=== PATIENT | female | born 1965 | race Caucasian/White ===

== ENCOUNTER 2021-07-27 11:15 | Outpatient (CLI) | payer BC, SELFPAY ==
--- NOTE | ~2021-07-27 | XR_ITS ---
EXAMINATION: XR foot LT 2V INDICATION: Left foot pain TECHNIQUE: Two views of the left foot are obtained. COMPARISON: None available FINDINGS: There is advanced osteoarthritis at the first metatarsophalangeal joint. No fracture is sandhya ntified. The soft tissues are unremarkable. There is fusion of the distal interphalangeal joints of t he second through fifth toes. IMPRESSION: 1. 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 Reviewed, dictated and finalized at location B.
== END 2021-07-27 11:16 | disposition home or self-care (01) ==
PROVIDERS: PCP Family Medicine; Visit Provider Nurse Practitioner Family
DX: M19.072 Primary osteoarthritis, left ankle and foot (principal)
CPT/HCPCS: 73620

== ENCOUNTER 2023-01-17 15:55 | Emergency (ER) | payer BC, SELFPAY ==
--- NOTE | ~2023-01-17 | XR_ITS ---
. XR knee RT min 4V 01/17/2023 16:42 Indication: Right knee pain after work injury Procedure: 4 views right knee Comparison: No prior studies for comparison. Findings: There is anatomic alignment. No fracture or traumatic subluxation. No joint effusion. No adebayo int space narrowing. No soft tissue abnormality. Impression: 1: No significant bone or joint abnormality. Reviewed, dictated and finalized at location L. Impression: 1: No significant bone or joint abnormality.
[2023-01-17 16:12] VITALS: BP 132/78; PULSE 68; RESP 18; TEMP 36; O2SAT 99
--- NOTE | 2023-01-17 16:46 | ED.LOWEXIN ---
HPI - Extremity Injury (Lower) General Chief Complaint: Extremity Injury, Lower Stated Complaint: Rt Knee Pain Time Seen by Provider: 01/17/23 16:47 Source: patient, RN notes reviewed and old records reviewed Mode of arrival: ambulatory Limitations: no limitations History of Present Illness HPI Narrative: 57 year female presents to [facility] with complaints of pain to the medial aspect of her left knee since the end of December. 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 She states she stood up after working and had sharp pain for about 2 hours straight iced it and rested her knee and it did seem to improve some. She states that she has been working on her knee since and it aches and when she is up on her knee it feel like there is pain underneath the knee cap. She has iced her knee, used Biofreeze and also taken Ibuprofen, used shania wrap. Patient has no swelling or discoloration to her right knee, she has full ROM of knee. Patient also reports complaints of sinus congestion,sinus pain for 1 month, reports has used OTC sinus medications and has also taken Sudafed with no improvement, states no fever. MD complaint: other (right knee pain) Onset (ago): day(s) (15) Severity scale (1-10): 7 Treatments prior to arrival: cold therapy, NSAIDS and other (shania wrap. ) Related Data Allergies Allergy/AdvReac Type Severity Reaction Status Date / Time NKDA Allergy Mild Unknown Uncoded 01/17/23 16:29 Review of Systems Review of Systems: CONSTITUTIONAL: Denies fever, chills, or sweats. EYES: Denies visual changes, redness, or discharge. ENT: Reports rhinorrhea, congestion sinus pain for 4 weeks,no sore throat, or otalgia. CARDIOVASCULAR: Denies chest pain, palpitations, or edema. RESPIRATORY: Denies cough or dyspnea. GASTROINTESTINAL: Denies abdominal pain, nausea, vomiting, or diarrhea. GENITOURINARY: Denies dysuria or hematuria. SKIN: Denies rash or itching. MUSCULOSKELETAL: Denies back pain, joint pain, or myalgia. NEUROLOGIC: Denies headache, numbness, or weakness. PSYCHIATRIC: Denies anxiety or depression. All systems reviewed & are unremarkable except as noted in HPI and below PMFSH Past Medical History Medical History Allergies Headache Hyperlipidemia Migraine Family History Family History Father Family history of lung cancer Mother Family history of coronary artery disease Grandparent Family history of coronary artery disease Social History Social History Social History: Single lives alone. 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 There is no relevant family history pertinent to the presenting complaint Exam Narrative: GENERAL: Well-appearing, well-nourished, and in no acute distress. HEAD: Normocephalic, atraumatic. EYES: PERRLA and EOMI. ENT: Nares red and swollen clear rhinorrhea no epistaxis, facial pressure and headache frontal. Mucous membranes moist. TM's normal, throat pink with post nasal discharge. NECK: Supple. no lymphadenopathy CHEST: Clear to auscultation. No respiratory distress.SKYE 99% on room air HEART: Regular rate and rhythm. No murmur heard. Normal peripheral pulses. ABDOMEN: Soft, nontender, nondistended, normal active bowel sounds. EXTREMITIES: Normal range of motion. No edema noted, pain to medi
== END 2023-01-17 17:15 | disposition home or self-care (01) ==
PROVIDERS: Emergency Provider Registered Nurse; PCP Nurse Practitioner Family
DX: M25.561 Pain in right knee (principal); J01.40 Acute pansinusitis, unspecified; E78.5 Hyperlipidemia, unspecified
CPT/HCPCS: 73564; 99213; G0463

== ENCOUNTER 2023-06-01 13:36 | Emergency (ER) | payer BC, SELFPAY ==
--- NOTE | 2023-06-01 13:43 | ED.URI ---
HPI - URI/Sore Throat General Chief Complaint: Upper Respiratory Infection Stated Complaint: Sinus Infection Time Seen by Provider: 06/01/23 13:43 Source: patient Mode of arrival: ambulatory Limitations: no limitations History of Present Illness HPI Narrative: Angi is a 4-year-old female patient presenting to the clinic today with complaints of possible sinus infection x3 days. She reports she is having sinus pressure and congestion with drainage going on the back of her throat. No fever or chills. States that when she blows her nose she does have some green nasal discharge. Has only taken ibuprofen for her symptoms. MD elicited complaint: cough, nasal congestion and sinus pain Related Data Home Medications Medication Instructions Recorded Confirmed No Home Medications 06/01/23 06/01/23 Allergies Allergy/AdvReac Type Severity Reaction Status Date / Time NKDA Allergy Mild Unknown Uncoded 06/01/23 13:44 Review of Systems Review of Systems: Pertinent positives per HPI. Patient denies any fever, chills, rash, headache, visual changes, dizziness, shortness of breath, chest pain, palpitations, nausea, vomiting, diarrhea, constipation, abdominal pain, or any urinary issues. PMFSH Past Medical History Medical History Allergies Headache Hyperlipidemia Migraine Family History Family History Father Family history of lung cancer Mother Family history of coronary artery disease Grandparent Family history of coronary artery disease Social History Social History Social History: Single lives alone. 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 There is no relevant family history pertinent to the patient complaint. Exam Narrative: General: Well-developed, well nourished, in no apparent distress Head: Normocephalic, atraumatic Eyes: Pupils equally round and reactive to light bilaterally, EOM intact, sclera and conjunctive clear, no discharge, lids normal Ears: TMs intact and clear, ear canals clear, no drainage, grossly hearing normal. Nose: Nares patent, clear nasal discharge, no inflammation, no sinus tenderness. Mouth: Oral pharynx without lesions or masses, good dentition, MMM. Postnasal drip Neck: Supple, trachea midline, no enlargement of anterior or posterior cervical nodes, no thyroid masses or goiter palpable. Cardio: Regular rate and rhythm, s1 and s2 normal, no murmur appreciated. Resp: Clear to auscultation bilaterally, no rhonchi, rales, wheezing or rubs Course Course Emergency Course: Portions of this record may have been created with voice recognition software. Level of Care: Express Care Visit Vital Signs Vital signs: Vital signs reviewed MDM - URI/Sore Throat MDM Narrative Medical decision making narrative: At the time of visit patient is resting comfortably on the exam table. Patient appears to be nontoxic. Labs: COVID testing was performed and was positive in the clinic today Plan: COVID test was positive in the clinic today. Work note was given. Supportive measures were discussed with the patient and they voiced understanding discharge instructions and agrees to treatment plan. Return precautions reviewed Differential Diagnosis Differential diagnosis: Likely upper respiratory infection, otitis media, sinus
[2023-06-01 13:48] VITALS: BP 128/72; PULSE 84; RESP 18; TEMP 36.6; O2SAT 97
== END 2023-06-01 14:24 | disposition home or self-care (01) ==
PROVIDERS: Emergency Provider Nurse Practitioner Family; PCP Nurse Practitioner Family
DX: U07.1 COVID-19 (principal); E78.5 Hyperlipidemia, unspecified
CPT/HCPCS: 87426; 87804; 99213; G0463

== ENCOUNTER 2023-07-05 15:18 | Emergency (ER) | payer BC, SELFPAY ==
[2023-07-05 15:33] VITALS: BP 130/66; PULSE 69; RESP 18; TEMP 36.4; O2SAT 99
--- NOTE | 2023-07-05 15:53 | ED.DENTAL ---
HPI - Dental/Oral General Chief complaint: Dental/Oral Stated complaint: mouth infection Time Seen by Provider: 07/05/23 15:53 Source: patient Mode of arrival: ambulatory Limitations: no limitations History of Present Illness HPI Narrative: 58-year-old female presents with complaint of soreness in throat with drainage. States that the drainage is smelling and taste bad and swelling it into her stomach and is going into her system .afebrile. All systems reviewed and negative except as noted above. Related Data Allergies Allergy/AdvReac Type Severity Reaction Status Date / Time NKDA Allergy Mild Unknown Uncoded 07/05/23 15:50 Review of Systems Review of Systems: CONSTITUTIONAL: Denies fever, chills, or sweats. EYES: Denies visual changes, redness, or discharge. ENT: Denies rhinorrhea, congestion . Reports sore throat. Denies otalgia. CARDIOVASCULAR: Denies chest pain, palpitations, or edema. RESPIRATORY: Denies cough or dyspnea. GASTROINTESTINAL: Denies abdominal pain, nausea, vomiting, or diarrhea. GENITOURINARY: Denies dysuria or hematuria. SKIN: Denies rash or itching. MUSCULOSKELETAL: Denies back pain, joint pain, or myalgia. NEUROLOGIC: Denies headache, numbness, or weakness. PSYCHIATRIC: Denies anxiety or depression. All other systems reviewed are negative, except as documented in HPI. [facility] Past Medical History Medical History Allergies Headache Hyperlipidemia Migraine Family History Family History Father Family history of lung cancer Mother Family history of coronary artery disease Grandparent Family history of coronary artery disease Social History Social History Social History: Single lives alone. 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 There is no relevant family history pertinent to the presenting complaint. Exam Narrative: GENERAL: This is a well-nourished, well-developed patient, in no apparent distress. HEAD: normocephalic, atraumatic. EYES: PERRL. Sclera clear/white. Vision is grossly intact. EARS: External ears normal NOSE: External nose normal THROAT: Mucous membranes moist, mild erythema and swelling with postnasal drainage NECK: Neck supple, non-tender without lymphadenopathy, masses or thyromegaly. CARDIOVASCULAR: Regular rate and rhythm without murmurs, gallops, or rubs. RESPIRATORY: Clear to auscultation. Breath sounds equal bilaterally. No wheezes, rales, or rhonchi. SKIN: warm, Dry, intact with no suspicious lesions or rash, good texture and turgor. NEURO: awake, alert, and oriented to person, place and time. There were no obvious focal neurologic abnormalities. EXTREMITIES: No joint tenderness, effusion, or edema noted. Course Course Level of Care: Express Care Visit Vital Signs Vital signs: Vital Signs Temperature 36.4 C L 07/05/23 15:33 Pulse Rate 69 07/05/23 15:33 Respiratory Rate 18 07/05/23 15:33 Blood Pressure 130/66 07/05/23 15:33 Pulse Oximetry 99 07/05/23 15:33 Oxygen Delivery Room Air 07/05/23 15:33 Temperature 36.4 C L 07/05/23 15:33 Pulse Rate 69 07/05/23 15:33 Respiratory Rate 18 07/05/23 15:33 Blood Pressure 130/66 07/05/23 15:33 Pulse Oximetry 99 07/05/23 15:33 Oxygen Delivery Room Air 07/05/23 15:33 reviewed MDM - Dental/Oral MDM Narrative Medical
== END 2023-07-05 16:27 | disposition home or self-care (01) ==
PROVIDERS: Emergency Provider Nurse Practitioner Family; PCP Nurse Practitioner Family
DX: J02.0 Streptococcal pharyngitis (principal); E78.5 Hyperlipidemia, unspecified
CPT/HCPCS: 87426; 87880; 99213; G0463

== ENCOUNTER 2023-08-13 12:08 | Emergency (ER) | payer BC, SELFPAY ==
--- NOTE | 2023-08-13 12:11 | ED.URI ---
HPI - URI/Sore Throat General Chief Complaint: Upper Respiratory Infection Stated Complaint: Congestion and R Ear Discomfort Time Seen by Provider: 08/13/23 12:26 Source: patient, RN notes reviewed and old records reviewed Mode of arrival: ambulatory Limitations: no limitations History of Present Illness HPI Narrative: 58-year-old female presents to the [facility] with congestion since Saturday, 4 days ago. Reports fluid in right ear. Has had drainage from eyes nose. Started today. Taken a decongestant and NyQuil. Denies fevers Related Data Home Medications Medication Instructions Recorded Confirmed No Home Medications 08/13/23 08/13/23 Allergies Allergy/AdvReac Type Severity Reaction Status Date / Time No Known Allergies Allergy Verified 08/13/23 12:12 Review of Systems Review of Systems: All systems reviewed & are unremarkable except as noted in HPI and below Constitutional: Constitutional: Reports no additional constitutional complaints Eyes: Eyes: Reports no additional eye complaints ENT: Reports as per HPI, Reports otalgia and Reports nasal congestion Cardiovascular: Cardiovascular: Reports no additional cardiovascular complaints, Denies chest pain and Denies dyspnea Respiratory: Respiratory: Reports no additional respiratory complaints, Denies chest congestion, Denies cough and Denies dyspnea Gastrointestinal: Gastrointestinal: Reports no additional gastrointestinal complaints, Denies abdominal pain, Denies nausea and Denies vomiting Musculoskeletal: Musculoskeletal: Reports no additional musculoskeletal complaints Integumentary/Breasts: Skin/Breast: Reports system reviewed and no additional complaints, except as docu Neurologic: Reports system reviewed and no additional complaints, except as documented Psychiatric: Psychiatric: Reports no additional psychiatric complaints Allergic/Immunologic: Allergic/Immunologic: Reports no additional allergic/immunologic complaints [facility] Past Medical History Medical History Allergies Headache Hyperlipidemia Migraine Family History Family History Father Family history of lung cancer Mother Family history of coronary artery disease Grandparent Family history of coronary artery disease Social History Social History Social History: Single lives alone. 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 There is no relevant family history pertinent to the patient complaint. Exam Const: General: cooperative, healthy appearing, comfortable, no acute distress, well developed, alert and well nourished Nutritional Appearance: well nourished Orientation/consciousness: patient oriented x3 Limitations: no limitations HENMT: Head: normal to inspection Ears: hearing grossly normal bilaterally, external ears normal, EAC's normal, mastoids normal, no periauricular adenopathy and TM abnormal wth effusion serous on the right Face/Nose/Sinus: Normal external nose present, Normal nares present, Normal nasal mucous membranes and turbinates present, Nasal discharge present clear bilateral, normal facial exam, face symmetric and No sinus tenderness Face and sinus: normal facial exam and face symmetric Mouth: Yes Normal oral and palatal mucosa present, Yes lip normal and Yes moist mucous membranes Throat: posterior oropharynx joey
[2023-08-13 12:24] VITALS: BP 139/80; PULSE 70; RESP 18; TEMP 36.2; O2SAT 99
== END 2023-08-13 12:46 | disposition home or self-care (01) ==
PROVIDERS: Emergency Provider Nurse Practitioner
DX: R09.82 Postnasal drip (principal); J06.9 Acute upper respiratory infection, unspecified; H65.03 Acute serous otitis media, bilateral; E78.5 Hyperlipidemia, unspecified
CPT/HCPCS: 99211; G0463

== ENCOUNTER 2024-05-04 03:48 | Emergency (ER) | payer BC, SELFPAY ==
[2024-05-04 03:53] VITALS: BP 166/92; PULSE 74; RESP 20; TEMP 37.4; O2SAT 97
[2024-05-04] MEDS: cefTRIAXone 1 GM VIAL IM (05:21)
[2024-05-04] MEDS: dexAMETHasone SOD PHOS INJ 10 MG/ML 1 ML VIAL IM (05:21)
[2024-05-04] MEDS: HYDROmorphone HCL INJ (*CRX) 1 MG/ML SYR IM (05:21)
[2024-05-04] MEDS: LIDOCAINE 1% LOCAL INJ 10 ML VIAL (05:21)
--- NOTE | 2024-05-04 05:46 | ED.GENADULT ---
HPI - General Adult General Chief complaint: Ear Stated complaint: ear pain, dizziness Time Seen by Provider: 05/04/24 05:06 History of Present Illness HPI narrative: Patient is 58-year-old female who presents emergency department with chief complaint of ear pain and decreased hearing patient reports that she has had a recent ear infection was treated with amoxicillin for 3 days and prednisone for 3 days patient reports that she continues to have worsening pain and reports that now she cannot hear out of her ears. The patient reports that the pain is exquisite reports that she has not seen your nose and throat Related Data Allergies Allergy/AdvReac Type Severity Reaction Status Date / Time No Known Allergies Allergy Verified 05/04/24 03:57 Review of Systems Review of Systems: A 10 system review of systems was completed on the patient and is negative except for what is stated in the HPI. Nursing and ancillary documentation was reviewed. PMFSH Past Medical History Medical History Hyperlipidemia Migraine Headache Allergies Family History Family History Father Family history of lung cancer Mother Family history of coronary artery disease Grandparent Family history of coronary artery disease Social History Social History Social History: Single lives alone. 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 HEAD: Normocephalic, atraumatic. EYES: PERRLA and EOMI. ENT: There is clear rhinorrhea from both nostril. The left tympanic membrane is bulging right tympanic membrane is erythematous NECK: Supple. CHEST: Clear to auscultation. No respiratory distress. HEART: Regular rate and rhythm. No murmur heard. Normal peripheral pulses. ABDOMEN: Soft, nontender, nondistended, normal active bowel sounds. EXTREMITIES: Normal range of motion. No edema. SKIN: Warm, dry, no rash. NEURO: No focal deficits. Alert and oriented x3. PSYCH: Normal mood and affect. Course Vital Signs Vital signs: Vital Signs Temperature 37.4 C 05/04/24 03:53 Pulse Rate 74 05/04/24 03:53 Respiratory Rate 20 05/04/24 03:53 Blood Pressure 166/92 H 05/04/24 03:53 Pulse Oximetry 97 05/04/24 03:53 Oxygen Delivery Room Air 05/04/24 03:53 Temperature 37.4 C 05/04/24 03:53 Pulse Rate 74 05/04/24 03:53 Respiratory Rate 20 05/04/24 03:53 Blood Pressure 166/92 H 05/04/24 03:53 Pulse Oximetry 97 05/04/24 03:53 Oxygen Delivery Room Air 05/04/24 03:53 Medical Decision Making MDM Narrative Medical decision making narrative: Differential diagnosis includes otitis media The patient has a bulging left tympanic membrane. The patient's pain was controlled in the emergency department the patient was started on cefdinir and prednisone. Vital Signs Vital Signs: Vital Signs Temperature 37.4 C 05/04/24 03:53 Pulse Rate 74 05/04/24 03:53 Respiratory Rate 20 05/04/24 03:53 Blood Pressure 166/92 H 05/04/24 03:53 Pulse Oximetry 97 05/04/24 03:53 Oxygen Delivery Room Air 05/04/24 03:53 Temperature 37.4 C 05/04/24 03:53 Pulse Rate 74 05/04/24 03:53 Respiratory Rate 20 05/04/24 03:53 Blood Pressure 166/92 H 05/04/24 03:53 Pulse Oximetry 97 05/04/24 03:53 Oxygen Delivery Room Air 05/04/24 03:53 Discharge Plan Discharge Clinical Impression: Acute otitis media Patient Disposition: Home, Self-Care Condition: Stable Instructions: Antibiotic Form, Ear Infection (ED), Earache (ED) Patient Language: Japanese Prescriptions: New cefdinir 300 mg capsule 300 mg PO Q12H 10 Days Qty: 20 0RF prednisone 20 mg tablet 40 mg PO DAILY 5 Days Qty: 10 0RF hydrocodone-acetaminophen 5-325 mg tablet 1 tablet PO Q6H PRN (Reason: pain) 3 Days Qty: 12 0RF Follow-up/Referrals: Dima Mcnally MD [Physician] - Jean Cerrato MD [Physician] - UNKNOWN,DOCTOR [Primary Care Provider] - Time of Disposition: 05:48
--- OUTSIDE RECORDS SUMMARY | 2024-05-11 04:02 | XMS_ITS | Continuity of Care Document ---
Author Organization [facility] Address [address] [place] [address] Phone Care Team Providers Care Offender Employment Specialist Name Role Phone Silvio Mendez MD Unavailable Unavailable Allergies, Adverse Reactions, Alerts Substance Reaction Status Criticality No Known Allergies Active No Inform ation Medications Medication Instructions Dosage Effective Dates (start - stop) Status Comments meloxicam 7.5 mg tablet take 1 tablet by oral route every 12 hrs pc prn - No Longer Active Procedures Procedure Date Office/outpatient visit,est, mod 2023 Supplemental Report Global/Postop followup visit Supplemental Report Global/Postop followup visit Supplemental Report Global/Postop followup visit Supplemental Report Global/Postop followup visit Supplemental Report Synovectomy Limited Scope Arthroscopic Chondroplasty Office/outpatient visit,est, mod 2023 Supplemental Report Office/outpatient visit,est, mod 2022 Supplemental Report Asp/inject major joint or bursa w/o US g uidance Kenalog 10mg/mL Office/outpatient visit,est, mod 2022 Supplemental Report Office consultation, moderate MDM Knee Hinged [facility] Advance Directives Directive Yes / No Effective Date File Name No Information Encounters Encounter Description Practice Location Reason(s) For Visit Diagnoses Date Provider Providers Copied on Encounter Office/outpa tient visit,est, mod [facility], [address] [address], [place], [place], [id number], [place] tel:[phone] [facility] Right knee (chief complaint) Encounter for other orthopedic aftercare 4 Andrea Anguiano. [address] [facility], [place], [place], [id number] , [place]. tel: [phone] [facility], [address], [id number], [place] tel:[phone] [facility] Having to fill out my own stat (chief complaint) Encounter for other orthopedic aftercare 4 Andrea Anguiano. [address] [facility], [place], [place], [id number] , [place]. tel: [phone] [facility], [address], [id number], [place] tel:[phone] [facility] right knee (chief complaint) Encounter for other orthopedic aftercare 4 Andrea Anguiano. [address] [facility], [place], [address] , [place]. tel: [phone] [facility], [address], [id number], [place] tel:[phone] [facility] Having to check in (chief complaint) Encounter for other orthopedic aftercare 4 Anrdea Anguiano. [address] [facility], [address], [id number] , [place]. tel: [phone] [facility], [address], [id number], [place] tel:[phone] [facility] right knee (chief complaint) Encounter for other orthopedic aftercare 4 Andrea Anguiano. [address] [facility] [address], [place], [place], [address] , [place]. tel: [phone] [facility], [address] [address], [place], [place], [address], [place] tel:[phone] [facility] No Information 4 Andrea Anguiano. [address] [facility] [address], [place], [place], [id number] , [place]. tel: [phone] Office/outpa tient visit,est, [facility], [address], [id number], [place] tel:[phone] [facility] right knee (chief complaint) Chondromalacia of right knee 4 Andrea Anguiano. [address], [id number] , [place]. tel: [phone] Office/outpa tient visit,est, [facility], [address], [id number], [place] tel:[phone] [facility] Right leg (chief complaint) Contusion of right knee, sequelaChondromal acia of right knee 3 Andrea Anguiano. [address] [facility], [address], [id number] , [place]. tel: [phone] Office/outpa tient visit,est, [facility], [address], [id number], [place] tel:[phone] [facility] Follow up (chief complaint) Contusion of right knee, sequela 3 Andrea Anguiano. [address] [facility], [address] [address], [place], [place], [id number] , [place]. tel: [phone] [facility], [address], [id number], [place] tel:[phone] [facility] right knee (chief complaint) Contusion of right knee, sequelaChondromal acia of right knee 3 Andrea Anguiano. [address] [facility], [place], [place], [id number] , [place]. [phone] Office consultation , moderate MDM [facility], [address] [facility] [facility] [address], [place], [id number], tel:[phone] [facility] right knee (chief complaint) Nondisp fx of medial condyle of right femur, init 3 Andrea Anguiano. [address], [place], [place], [address] , [place]. tel:[phone] Referring Provider: Silvio Prieto, [facility] [address] [facility], [place], [address] . tel:[phone] Family History Family Member Type Diagnosis Age At Onset Mother Problem (finding) Stroke Mother Problem (finding) Heart Disease Mother Problem (finding) Cancer, unknown Father Problem (finding) Cancer, unknown Immunizations Vaccine Date Status Comments influenza, injectable, quadr ivalent, (3 years or older) administered Source: Other Provid er Payers Payer name Insurance type Covered republican ID Rafita mensah(ashu Quintanilla [facility] [place] [id number] Social History Type Description Quantity Date Captured Comments Alcohol Use Details No Caffeine Use Details Unknown Tobacco Use Status Current non-smoker Smoking Status Never smoker Non-Smoking Tobacco Use Details : No Details Available : No Details Available Sex Female Vital Signs Date / Time: Height Weight BMI Pulse Rate Blood Pressure Temperature Respiratory Rate Body Surface Area Head Circumference Head Circ. Percentile Wt./Paul. Percentile BMI percentile Pulse Ox Inhaled Ox 9:29 AM 65.00 in 63.503 kg (140.00 lbs) 23.3 0 kg/m eter (2) Chief Complaint And Reason For Visit From encounter dated 09/23/2023 09:30'. Right knee (chief complaint). Description: Angi returns to the office for right knee follow up. Reason For Referral Reason For Referral No Information History Of Present Illness Encounter Date Complaint History Of Prese nt Illness Right knee Angi returns to the office for right knee follow up. Having to fill out my own stat right knee Angi returns to the office for right knee follow up. Having to check in Angi returns to the office for right knee follow up. right knee Angi returns to the office for right knee follow up. right knee Angi returns to the office for right knee follow up. Right leg Angi returns to the office for right knee follow up. Follow up Angi returns to the office for right knee follow up. right knee Angi returns to the office for right knee follow up. right knee Angi presents t o the office for right knee complaints. Functional Status Date Functional Assessmen t No Information Instructions Date Instruction Additional Infor mation No Information Assessments Type Assessment Date assessment Encounter for other orthopedic a ftercare Patient Care Teams Name Effective Dates (start - stop) Status Members No Information
--- OUTSIDE RECORDS SUMMARY | 2024-05-11 04:20 | XMS_ITS | Continuity of Care Document ---
Author Organization [facility] Address [address] [place] [address] Phone Care Team Providers Care Rn Acls Name Role Phone Silvio Mendez MD Unavailable [...] visit,est, mod [facility], [address] [address], [place], [place], [id number], [place] tel:[phone] [facility] Right knee (chief complaint) Encounter for other orthopedic aftercare 4 Andrea Anguiano. [address] [facility], [facility] [address], [place], [place], [id number] , [place]. tel: [phone] [facility], [address], [id number], [place] tel:[phone] [facility] Having to fill out my own stat (chief complaint) Encounter for other orthopedic aftercare 4 Andrea Anguiano. [address] [facility], [facility] [address], [place], [place], [address] , [place]. tel: [phone] [facility], [address], [id number], [place] tel:[phone] [facility] right knee (chief complaint) Encounter for other orthopedic aftercare 4 Andrea Anguiano. [address] [facility], [facility] [address], [place], [address] , [place]. tel: [phone] [facility], [address], [id number], [place] tel:[phone] [facility] Having to check in (chief complaint) Encounter for other orthopedic aftercare 4 Andrea Anguiano. [address] [facility], [address], [id number] , [place]. tel: [phone] [facility], [address], [id number], [place] tel:[phone] [facility] right knee (chief complaint) Encounter for other orthopedic aftercare 4 Andrea Anguiano. [address] [facility], [address] [address], [place], [place], [address] , [place]. tel: [phone] [facility], [address] [address], [place], [place], [address], [place] tel:[phone] [facility] No Information 4 Andrea Anguiano. [address] [facility], [address] [address], [place], [place], [address] , [place]. tel: [phone] Office/outpa [place]ient [place], [facility], [address], [id number], [place] tel:[phone] [facility] right knee (chief complaint) Chondromalacia of right knee 4 Andrea Anguiano. [address], [id number] , [place]. tel: [phone] Office/outpa [place]ient visit,est, [facility], [address], [id number], [place] tel:[phone] [facility] Right leg (chief complaint) Contusion of right knee, sequelaChondromal acia of right knee 3 Andrea Anguiano. [address] [facility], [address], [id number] , [place]. tel: [phone] Office/outpa [place]ient visit,est, [facility], [address], [id number], [place] tel:[phone] [facility] Follow up (chief complaint) Contusion of right knee, sequela 3 Andrea Anguiano. [address] [facility], [address] [address], [place], [place], [address] , [place]. tel: [phone] [facility], [address], [id number], [place] tel:[phone] [facility] right knee (chief complaint) Contusion of right knee, sequelaChondromal acia of right knee 3 Andrea Anguiano. [address] [facility], [address], [place], [place], [address] , [place]. [phone] Office consultation , moderate MDM [facility], [address] [facility], [place], [address], tel:[phone] [facility] right knee (chief complaint) Nondisp fx of medial condyle of right femur, init 3 Andrea Anguiano. [address] [facility], [address], [place], [place], [address] , [place]. tel:[phone] Referring Provider: Silvio Prieto, [facility] [address] [facility], [place], [address] . tel:[phone] Family History Family Member Type Diagnosis Age At Onset Mother Problem (finding) Stroke Mother Problem (finding) Heart Disease Mother Problem (finding) Cancer, unknown Father Problem (finding) Cancer, unknown Immunizations Vaccine Date Status Comments influenza, injectable, quadr ivalent, (3 years or older) administered Source: Other Provid er Payers Payer name Insurance type Covered constitution party ID Rafita mensah(ashu Quintanilla [facility] [id number] Social History Type Description Quantity Date Captured [...] knee follow up. Having to check in Anig returns to the office for right knee [...]
== END 2024-05-04 06:00 | disposition home or self-care (01) ==
PROVIDERS: Emergency Provider Emergency Medicine
DX: H66.92 Otitis media, unspecified, left ear (principal); E78.5 Hyperlipidemia, unspecified
CPT/HCPCS: 96372; 99284; J0696; J1100; J1171; J2003

== ENCOUNTER 2024-07-09 13:46 | Outpatient (CLI) | payer BC, SELFPAY ==
--- NOTE | ~2024-07-09 | MM_ITS ---
EXAMINATION: MM screening gregorio BI w merna HISTORY: Screening mammogram TECHNIQUE: Craniocaudal and mediolateral oblique 3-D tomosynthesis images were obtained and synthetic 2-D images were generated. CAD analysis was submitted and interpreted. COMPARISON: No prior mammogram is available for comparison at this institution. BREAST PARENCHYMAL COMPOSITION:Dense: The breasts are heterogeneously dense, which may obscure small masses. FINDINGS: No suspicious mass, calcification, or architectural distortion are identified in either cary ast to suggest malignancy. There has been no suspicious interval change. IMPRESSION: No mammographic evidence of malignancy. Recommend routine screening mammography in one year. BI-RADS Category 1: Negative Reviewed, dictated and finalized at location .
--- OUTSIDE RECORDS SUMMARY | 2024-07-09 15:02 | XMS_ITS | Continuity of Care Document ---
Author Organization [facility] Address [address] [place] [address] Phone Care Team Providers Care Facing Cutting Machine Operator Name Role Phone Silvio Mendez MD Unavailable [...] visit,est, mod [facility], [address] [address], [place], [place], [id number], [place] tel:[phone] [facility] Right knee (chief complaint) Encounter for other orthopedic aftercare 4 Andrea Anguiano. [address] [facility], [facility] [address], [place], [place], [address] , [place]. tel: [phone] [facility], [address], [id number], [place] tel:[phone] [facility] Having to fill out my own stat (chief complaint) Encounter for other orthopedic aftercare 4 Andrea Anguiano. [address] [facility], [facility] [address], [place], [place], [address] , [place]. tel: [phone] [facility], [address], [id number], [place] tel:[phone] [facility] right knee (chief complaint) Encounter for other orthopedic aftercare 4 Andrea Anguiano. [address] [facility], [facility] [address], [place], [address] , [place]. tel: [phone] [facility], [address], [id number], [place] tel:[phone] [facility] Having to check in (chief complaint) Encounter for other orthopedic aftercare 4 Andrea Anguiano. [address] [facility], [address], [id number] , [place]. tel: [phone] [facility], [address], [id number], [place] tel:[phone] [facility] right knee (chief complaint) Encounter for other orthopedic aftercare 4 Andrea Anguiano. [address] [facility], [address] [address], [place], [place], [address] , [place]. tel: [phone] [facility], [address] [address], [place], [place], [address], [place] tel:[phone] [facility] No Information 4 Andrea Anguiano. [address] [facility], [address] [address], [place], [place], [address] , [place]. tel: [phone] Office/outpa tient visit,est, [facility], [address], [id number], [place] tel:[phone] [facility] right knee (chief complaint) Chondromalacia of right knee 4 Andrea Anguiano. [address], [id number] , [place]. tel: [phone] Office/outpa tient visit,est, [facility], [address], [id number], [place] tel:[phone] [facility] Right leg (chief complaint) Contusion of right knee, sequelaChondromal acia of right knee 3 Andrea Anguiano. [address] [facility], [address], [id number] , [place]. tel: [phone] Office/outpa tient visit,est, [facility], [address], [id number], [place] tel:[phone] [facility] Follow up (chief complaint) Contusion of right knee, sequela 3 Andrea Anguiano. [address] [facility], [address] [address], [place], [place], [address] , [place]. tel: [phone] [facility], [address], [id number], [place] tel:[phone] [facility] right knee (chief complaint) Contusion of right knee, sequelaChondromal acia of right knee 3 Andrea Anguiano. [address] [facility], [address], [place], [place], [address] , [place]. tel: [phone] Office consultation , moderate MDM [facility], [address], [place], [address], tel:[phone] [facility] right knee (chief complaint) Nondisp fx of medial condyle of right femur, init 3 Andrea Anguiano. [address] [facility], [address], [place], [place], [address] , [place]. tel:[phone] Referring Provider: Silvio Prieto, [facility] [address] [facility], [place], [address] . tel:[phone] Family History Family Member Type Diagnosis Age At Onset Mother Problem (finding) Stroke Mother Problem (finding) Heart Disease Mother Problem (finding) Cancer, unknown Father Problem (finding) Cancer, unknown Immunizations Vaccine Date Status Comments influenza, injectable, quadr ivalent, (3 years or older) administered Source: Other Provid er Payers Payer name Insurance type Covered constitution party ID Rafita mensah(ashu Quintanilla [facility] [id number] Social History Type Description Quantity Date Captured [...]
--- OUTSIDE RECORDS SUMMARY | 2024-07-09 15:02 | XMS_ITS | Referral Summary ---
Author Organization [facility] Address [address] [place] [address] Care Team Providers Care Field Laboratory Operator Name Role Phone Unavailable Primary Care Provider Unavailabl e Source Comments [facility],non-owned Affiliates and Associated Physician Practices is amultiple site organization consisting of ambulatory clinics and hospital sitesin [place], [place], [place] and [place]. This disclosure is being madepursuant to the Care Everywhere program and may not contain all information available regarding this patient. Last updated 18.[facility] Allergies No known active allergies Medications Be aware that medications may not be up to date on this document. Always verify current medications with the patient. No known medications Social History Tobacco Use Types Packs/Day Years Used Date Smoking Tobacco: Never Alcohol Use Standard Drinks/Week Comments No 0 (1 standard drink = 0.6 oz pur e alcohol) Sex and Gender Information Value Date Recorded Sex Assigned at Not on file Gender Identity Not on file Sexual Orientation Not on file Last Filed Vital Signs Vital Sign Reading Time Taken Comments Blood Pressure 125/82 12/12/2015 6:30 AM CDT Pulse 75 12/12/2015 6:30 AM CDT Temperature 36.7 C (98 F) 12/12/2015 3:30 AM CDT Respiratory Rate 18 12/12/2015 6:30 AM CDT Oxygen Saturation 100% 12/12/2015 6:30 AM CDT Inhaled Oxygen Concentration - - Weight 63.5 kg (140 lb) 12/12/2015 3:30 AM CDT Height 165.1 cm (5' 5 ) 12/12/2015 3:30 AM CDT Body Mass Index 23.3 12/12/2015 3:30 AM CDT Plan of Treatment Upcoming Encounters Date Type Department Care Team (Late st Contact Info) Description 07/23/2024 9:30 AM CDT Testing Visit [facility] [address] [place] [phone] Gustabo Leonard, PhD [address] [place] [address] 07/23/2024 10:00 AM CDT Office Visit [facility] [address] [facility], [place] [phone] Negro Redd MD [address] [facility] [address] [place] [address] Ne Izaguirre Personal/Family Self 1965 [facility] [address] [place] [address] NE IZAGUIRRE Personal/Family 06/25/1959
--- OUTSIDE RECORDS SUMMARY | 2024-07-09 15:02 | XMS_ITS | Clinical Summary ---
Author Organization [facility] Address [address] [place] [address] Care Team Providers Care Hand Buffing Wheel Former Name Role Phone Unavailable Primary Care Provider Unavailabl e Source Comments [facility],non-owned Affiliates and Associated Physician Practices is amultiple site organization consisting of ambulatory clinics and hospital sitesin [place], [place], [place] and [place]. This disclosure is being madepursuant to the Care Everywhere program and may not contain all information available regarding this patient. Last updated 18.[facility] Allergies No known active allergies Medications Be [...] Testing Visit [facility] [address] [place] [phone] Gustabo Leonard, PhD [address] [place] [address] [place] [address] 07/23/2024 10:00 AM CDT Office Visit [facility] [address] [place] [phone] Negro Redd MD [address] [place] [address] [address] [place] [address] Health Maintenance Due Date Last Done Comments COLOGUARD (AGES 45-75) - COL ON CA SCREENING 1965 COLON MONITORING 1963 COLONOSCOPY - COLON CA SCREENING 1963 CT COLONOGRAPHY - COLON CA SCREENING 1965 Colorectal Cancer Screening 1963 FIT - COLON CA SCREENING 1963 FLEX SIG - COLON CA SCREENING 1963 LIPID TESTING 1965 MAMMOGRAM 1963 PAP SMEAR 1963 HIV SCREENING 1978 HEPATITIS C SCREENING 05/07/1981 DTAP/TDAP/TD VACCINES (1 - Tdap) 1982 PNEUMOCOCCAL VACCINE 50+ (1 of 1 - PCV) 2013 ZOSTER VACCINE (1 of 2) 2013 COVID-19 VACCINE ( - 2023-2 5 season) 2024 INFLUENZA VACCINE (#1) 2024 DEPRESSION SCREENING 05/06/2024 Respiratory Syncytial Virus (RSV) Vaccine Pt: or over 60 yrs (1 - 1-dose 75+ series) 2038 HEPATITIS B VACCINE Aged Out No longe r eligible based on patient's age to complete this topic HIB VACCINE Aged Out No longer eligi ble based on patient's age to complete this topic HPV VACCINE Aged Out No longer eligi ble based on patient's age to complete this topic MENINGOCOCCAL (Group B) VACCINE Aged Out No longer eligible based on patient's age to complete this topic MENINGOCOCCAL VACCINE Aged Out No margo ev eligible based on patient's age to complete this topic DR [address] [place] [address] NE IZAGUIRRE Personal/Family 06/25/1961
--- OUTSIDE RECORDS SUMMARY | 2024-07-09 15:02 | XMS_ITS | Patient Health Summary ---
Author Organization [facility] Address [address] [place] [address] Care Team Providers Care Motor Room Controller Name Role Phone Unavailable Primary Care Provider Unavailabl e Note from [facility],non-owned Affiliates and Associated Physician Practices is amultiple site organization consisting of ambulatory clinics and hospital sitesin [place], [place], [place] and [place]. This disclosure is being madepursuant to the Care Everywhere program and may not contain all information available regarding this patient. Last updated 18.[facility] Allergies No known active allergies Medications Be [...] Mass Index 23.3 12/12/2015 3:30 AM CDT Procedures * CT CERVICAL SPINE WO CONTRAST(Performed 12/12/2015) Performed for Head injury, initial encounter * CT HEAD WO CONTRAST(Performed 12/12/2015) Performed for Head injury, initial encounter Results * CT CERVICAL SPINE NON CONTRAST (12/12/2015 4:29 AM CDT) Anatomical Region Laterality Modality Spine Computed Tomogra phy 12/12/2015 7:04 AM CDT Impressions 12/12/2015 7:05 AM CDT No fracture, subluxation or osseous destruction in the cervical spine Degenerative changes as above. Narrative 12/12/2015 7:05 AM CDT EXAM: CT Cervical Spine Without Contrast INDICATION: Neck injury, neck pain COMPARISON: none available TECHNIQUE: Helically acquired contiguous axial sections through the C-spine performed without IV contrast. Thin collimation was used. Sagittal and coronal reconstructions were performed from the original helical data. FINDINGS: There is no compression fracture or subluxation. There is no osseous destruction. There is no prevertebral soft tissue swelling. A posterior neural arch fracture is not identified. There is decreased intervertebral disc space height, degenerative endplate change and hypertrophic spurring at C4-C5, C5-C6 and C6-C7. There is mild bilateral foraminal encroachment at C5-C6. Procedure Note Negro Leavitt MD - 12/12/2015 EXAM: CT Cervical Spine Without Contrast INDICATION: Neck injury, neck pain COMPARISON: none available TECHNIQUE: Helically acquired contiguous axial sections through the C-spine performed without IV contrast. Thin collimation was used. Sagittal and coronal reconstructions were performed from the original helical data. FINDINGS: There is no compression fracture or subluxation. There is no osseous destruction. There is no prevertebral soft tissue swelling. A posterior neural arch fracture is not identified. There is decreased intervertebral disc space height, degenerative endplate change and hypertrophic spurring at C4-C5, C5-C6 and C6-C7. There is mild bilateral foraminal encroachment at C5-C6. IMPRESSION No fracture, subluxation or osseous destruction in the cervical spine Degenerative changes as above. Vipul Perez MD CT ORDERABLES * CT HEAD NON CONTRAST (12/12/2015 4:27 AM CDT) Anatomical Region Laterality Modality Head Computed Tomogra phy 12/12/2015 7:05 AM CDT Impressions 12/12/2015 7:06 AM CDT No acute intracranial abnormalities Narrative 12/12/2015 7:06 AM CDT EXAM: CT scan of the brain without contrast INDICATION: Unspecified injury of head, initial encounter, headache COMPARISON: None available TECHNIQUE: Axial images through the brain without contrast FINDINGS: There is no evidence of acute intracranial hemorrhage. There is no mass or midline shift. Ventricular and sulcal size is within normal limits. There are no extra-axial fluid collections. The bony calvarium is intact. The paranasal sinuses are well aerated. There is a small left anterior scalp hematoma Procedure Note Negro Leavitt MD - 12/12/2015 EXAM: CT scan of the brain without contrast INDICATION: Unspecified injury of head, initial encounter, headache COMPARISON: None available TECHNIQUE: Axial images through the brain without contrast FINDINGS: There is no evidence of acute intracranial hemorrhage. There is no mass or midline shift. Ventricular and sulcal size is within normal limits. There are no extra-axial fluid collections. The bony calvarium is intact. The paranasal sinuses are well aerated. There is a small left anterior scalp hematoma IMPRESSION No acute intracranial abnormalities Vipul Perez MD CT ORDERABLES
== END 2024-07-09 13:47 | disposition home or self-care (01) ==
PROVIDERS: PCP Nurse Practitioner Family; Visit Provider Emergency Medicine
DX: Z12.31 Encounter for screening mammogram for malignant neoplasm of breast (principal)
CPT/HCPCS: 77063; 77067

== ENCOUNTER 2024-09-14 19:36 | Observation (INO) | payer SELFPAY ==
[2024-09-14] VITALS (24 sets, daily range): BP systolic 104–176; BP diastolic 57–126; PULSE 55–75; RESP 12–26; TEMP 36.6–36.8; O2SAT 93–100; BMI 26.6
--- NOTE | ~2024-09-14 | XR_ITS ---
EXAMINATION: XR chest 2V Exam Date/Time: 09/14/2024 20:09 CDT HISTORY: sob, cough, wheezing Comparison: None. RESULT: Lines, tubes, and devices: None. Lungs and pleura: Mid and lower lung reticular opacities with cuffing and indistinct vascular margin s. Subsegmental and somewhat nodular appearing right lower lobe opacity. Cardiomediastinal silhouette: Stable. Other: No acute osseous or upper abdominal finding. IMPRESSION: Focal subsegmental opacity in the right lung base, likely representing a small focus of consolidation or atelectasis. Recommend radiographic follow-up to ensure resolution. Diffuse pulmonary opacities may represent mild interstitial edema, in the appropriate clinical contex t. Reviewed, dictated and finalized at location K. IMPRESSION: Focal subsegmental opacity in the right lung base, likely representing a small focus of consolidation or atelectasis. Recommend radiographic follow-up to ensu re resolution. Diffuse pulmonary opacities may represent mild interstitial edema, in the appro priate clinical context.
--- NOTE | ~2024-09-14 | CT_ITS ---
EXAMINATION: CTA chest PE protocol DATE: 09/14/2024 21:27 INDICATION: sob, R cp, +dimer, possible PNA on CXR TECHNIQUE: Computed tomography angiography (CTA) of the chest was performed with 100 mL Omnipaque-350 intravenous contrast timed to evaluate the pulmonary arteries. Coronal maximum intensity projection 3D-reconstructions were created by the technologist. The dose-length product (DLP) was 318.72 mGy-cm. Automated exposure control and iterative reconstruction technique were employed. COMPARISON: X-ray chest, same date. FINDINGS: Lung parenchyma and airways: Tree-in-bud and centrilobular nodular groundglass opacities in the lingu la and to a lesser extent the medial right lower lobe. Patent airways. The right lung base opacity se en in the prior chest radiograph likely represent atelectasis with contribution from pericardial fat. Pleura: Unremarkable. Thoracic inlet, axillae and chest wall: Unremarkable. Thoracic aorta: No significant dilation. No dissection. Mediastinum: Normal. Heart and pericardium: Small volume pericardial fluid. Coronary artery calcifications: Absent. Upper abdomen: No significant finding. Bones: No acute osseous finding. Pulmonary arteries: Study quality: Adequate. No pulmonary emboli detected. IMPRESSION: No CT evidence of acute pulmonary embolus. Scattered pulmonary opacities may represent atypical infection or pneumonitis. Small pericardial effusion. Reviewed, dictated and finalized at location K.
--- OUTSIDE RECORDS SUMMARY | 2024-09-14 19:39 | XMS_ITS | Continuity of Care Document ---
Author Organization [facility] Address [address] [place] [address] Phone Care Team Providers Care Drug Safety Physician Name Role Phone Silvio Mendez MD Unavailable [...] visit,est, mod [facility], [address] [address], [place], [place], [id number], [place] tel:[phone] [facility] Right knee (chief complaint) Encounter for other orthopedic aftercare 4 Andrea Anguiano. [address] [facility] [address], [place], [place], [id number] , [place]. tel: [phone] [facility], [address], [id number], [place] tel:[phone] [facility] Having to fill out my own stat (chief complaint) Encounter for other orthopedic aftercare 4 Andrea Anguiano. [address] [facility] [address], [place], [place], [id number] , [place]. tel: [phone] [facility], [address], [id number], [place] tel:[phone] [facility] right knee (chief complaint) Encounter for other orthopedic aftercare 4 Andrea Anguiano. [address] [facility] [address], [place], [id number] , [place]. tel: [phone] [facility], [address], [id number], [place] tel:[phone] [facility] Having to check in (chief complaint) Encounter for other orthopedic aftercare 4 Andrea Anguiano. [address], [address], [id number] , [place]. tel: [phone] [facility], [address], [id number], [place] tel:[phone] [facility] right knee (chief complaint) Encounter for other orthopedic aftercare 4 Andrea Anguiano. [address] [address], [place], [place], [id number] , [place]. tel: [phone] [facility], [address] [address], [place], [place], [id number], [place] tel:[phone] [facility] No Information 4 Andrea Anguiano. [address] [address], [place], [place], [id number] , [place]. tel: [phone] Office/outpa tient visit,est, [facility], [address], [id number], [place] tel:[phone] [facility] right knee (chief complaint) Chondromalacia of right knee 4 Andrea Anguiano. [address], [id number] , [place]. tel: [phone] Office/outpa tient visit,est, [facility], [address], [id number], [place] tel:[phone] [facility] Right leg (chief complaint) Contusion of right knee, sequelaChondromal acia of right knee 3 Andrea Anguiano. [address], [address], [id number] , [place]. tel: [phone] Office/outpa tient visit,est, [facility], [address], [id number], [place] tel:[phone] [facility] Follow up (chief complaint) Contusion of right knee, sequela 3 Andrea Anguiano. [address], [address] [address], [place], [place], [id number] , [place]. tel: [phone] [facility], [address], [id number], [place] tel:[phone] [facility] right knee (chief complaint) Contusion of right knee, sequelaChondromal acia of right knee 3 Andrea Anguiano. [address], [place], [place], [id number] , [place]. [phone] Office consultation , moderate MDM [facility], [address], [place], [id number], tel:[phone] [facility] right knee (chief complaint) Nondisp fx of medial condyle of right femur, init 3 Andrea Anguiano. [address], [place], [place], [id number] , [place]. tel:[phone] Referring Provider: Silvio Prieto, [facility] [address] [facility], [place], [address] . tel:[phone] Family History Family Member Type Diagnosis Age At Onset Mother Problem (finding) Stroke Mother Problem (finding) Heart Disease Mother Problem (finding) Cancer, unknown Father Problem (finding) Cancer, unknown Immunizations Vaccine Date Status Comments influenza, injectable, quadr ivalent, (3 years or older) administered Source: Other Provid er Payers Payer name Insurance type Covered green party ID Rafita mensah(ashu Quintanilla [facility] [id number] Social History Type Description Quantity Date Captured [...]
--- OUTSIDE RECORDS SUMMARY | 2024-09-14 19:39 | XMS_ITS | Clinical Summary ---
Author Organization [facility] Address [address] [address] Care Team Providers Care Sighter Name Role Phone Unavailable Primary Care Provider Unavailabl e Source Comments [facility],non-owned Affiliates and Associated Physician Practices is amultiple site organization consisting of ambulatory clinics and hospital sitesin [place], [place], [place] and [place]. This disclosure is being madepursuant to the Care Everywhere program and may not contain all information available regarding this patient. Last updated 18.[facility] Allergies No known active allergies Medications * Be aware that medications may not be up to date on this document. Alwaysverify current medications with the patient. azelastine (Astelin) 0.1 % nasal spray Victor 1 (one) spray into each nostril 2 times daily 90 mL 4 07/23/2024 Active fluticasone propionate (Flonase) 50 MCG/ACT nasal spray Victor 2 (two) sprays into each nostril 2 times daily 48 g 4 07/23/2024 Active Encounters Date Type Department Care Team Description 07/23/2024 10:00 AM CDT Office Visit [facility] - ENT [address] [place] [phone] Negro Redd MD Dysfunction of both eustachian tubes (Primary Dx) 07/23/2024 9:30 AM CDT Testing Visit 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 Gender Identity Not on file Sexual Orientation Not on file Last Filed Vital Signs Vital Sign Reading Time Taken Comments Blood Pressure 152/92 07/23/2024 9:58 AM CDT Pulse 74 07/23/2024 9:58 AM CDT Temperature 36.7 C (98 F) 12/12/2015 3:30 AM CDT Respiratory Rate 18 12/12/2015 6:30 AM CDT Oxygen Saturation 100% 12/12/2015 6:30 AM CDT Inhaled Oxygen Concentration - - Weight 76.2 kg (168 lb) 07/23/2024 9:58 AM CDT Height 165.1 cm (5' 5 ) 07/23/2024 9:58 AM CDT Body Mass Index 27.96 07/23/2024 9:58 AM CDT Plan of Treatment Health Maintenance Due Date Last Done Comments [...] VACCINE ( - 2023-2 5 season) 2024 DEPRESSION SCREENING 05/06/2024 SCREENING FOR DIABETES 07/23/2024 INFLUENZA VACCINE (Season Ended) 2025 02/04/20 23 Respiratory Syncytial Virus (RSV) Vaccine Pt: or [...] to complete this topic MENINGOCOCCAL (Group B) VACC INE SHARED DECISION-MAKING Aged Out No longer eligibl e based on patient's age to complete this topic MENINGOCOCCAL GROUPS A/C/Y/W VACCINE Aged Out No longer eligible b ased on patient's age to complete this topic Procedures Procedure Name Priority Date/Time Associated Diagnosis Comments AUDIOLOGY/TYMPANOME TRY ORDER Routine 07/23/2024 9:21 AM CDT from Last 3 Months Results * AUDIOLOGY/TYMPANOMETRY ORDER (07/23/2024 9:21 AM CDT) Gustabo Martinez, PhD - 07/23/2024 9:52 AM CDT HISTORY: Ne Izaguirre is a 59 year old female was seen for an assessment of their hearing. Patient indicated that a video full time staff interpreter is not necessary for this appointment. The patient reports difficulty hearing. There is not a report of dizziness. There is a report of tinnitus. There is a report of otalgia. There is a report of noise exposure. There is a history of hearing loss in the family. There is not a history of previous ear surgery. RESULTS: Pure-tone air/bone conduction testing revealed a mild sensorineural hearing in the right ear and a mild sloping to moderate sensorineural hearing in the left ear. Speech Scheduling Representative Thresholds is in good agreement with pure tone average(see speech audiometry for details). Speech understanding was excellent in the right ear and excellent in the left ear. Immittance measures revealed a Type A tympanogram in the right ear, indicating normal middle ear function. Results for the left ear revealed a Type A tympanogram, indicating normal middle ear function in that ear. Findings were reviewed and discussed with Ne Izaguirre following the hearing evaluation. All questions were answered. PLAN: 1. The risks and benefits of my recommendations, as well as other treatment options were discussed today. 2. I recommend that the patient follow up with their facility, an ENT or PCP PRN. 3. Continue use of HPD. Gustabo Leonard, Ph.D., GRIFFIN., [facility] [employer] W[employer], Director Division of Clinical Audiology Department of Otolaryngology- Head & Neck Surgery [facility] Dizziness & Imbalance [facility] Hearing Aid [facility] us Gustabo Leonard PhD AUDIOLOGY SERVICES ORDERABLES Fi nal Result from Last 3 Months Insurance ANTHEM ANTHEM * Guarantor: NE IZAGUIRRE Account Type Relation to Patient Date of Phone Billing Address Personal/Family 1961
--- NOTE | 2024-09-14 19:44 | ECG_ITS ---
Test Date: 2024-09-14 19:47:22 Measurements Intervals [place] Rate: 84 P: 50 ME: 113 QRS: 14 QRSD: 82 T: 5 QT: 369 QTc: 437 Interpretive Statements SINUS RHYTHM WITH SHORT ME INTERVAL No previous ECG available for comparison Electronically Signed On 09-15-2024 14:50:37 CDT by Constantino Montenegro M.D.
--- NOTE | 2024-09-14 19:53 | ED_ITS ---
HPI - SOB/Dyspnea General Chief Complaint: Shortness of Breath/Dyspnea Stated Complaint: i think I have pneumonia , SOB Time Seen by Provider: 09/14/24 19:38 Source: patient Mode of arrival: ambulatory Limitations: no limitations History of Present Illness HPI Narrative: Patient is a 59 y/o female who presents to the ED with c/o SOB. Patient reports she has been sick for the past 1 week with productive cough, congestion, sinus pressure, SOB. She saw her PCP last week and was told she had fluid on her lungs. Was given a nebulizer treatment in the office, prescribed prednisone, doxycycline, albuterol inhaler for home. She reported initial improvement with medications, but reports having worsening shortness of breath today. Began having some right-sided chest pain earlier today when she was very winded. Denies current chest pain. Denies known fevers. Denies sick contacts. Denies pain or swelling in legs. Related Data Allergies Allergy/AdvReac Type Severity Reaction Status Date / Time No Known Allergies Allergy Verified 09/14/24 19:37 Review of Systems 2 Review of Systems: All systems reviewed & are unremarkable except as noted in HPI. All systems reviewed & are unremarkable except as noted in HPI and below PMFSH Past Medical History Medical History Hyperlipidemia Migraine Headache Allergies Family History Family History Father Family history of lung cancer Mother Family history of coronary artery disease Grandparent Family history of coronary artery disease Social History Social History Social History: Single lives alone. 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 HEAD: Normocephalic, atraumatic. RESPIRATORY: Airway patent, respirations slightly hyperventilating, nonlabored. Rhonchi in bases bilaterally. No significant wheezing. CARDIOVASCULAR: Regular rate and rhythm without murmurs, rubs, or gallops. MUSCULOSKELETAL: Moves all extremities. No gross deformities. No peripheral edema. SKIN: Warm, dry, normal color. NEURO: A&O X3. Speech clear. Cranial nerves II-XII grossly intact. Steady gait. No ataxic movements. PSYCHIATRIC: Appropriate mood and affect. Normal interaction. Course Vital Signs Vital signs: Vital Signs Temperature 98.3 F 09/14/24 19:40 Pulse Rate 73 09/14/24 19:40 Respiratory Rate 26 H 09/14/24 19:40 Blood Pressure 154/114 H 09/14/24 19:40 Pulse Oximetry 97 09/14/24 19:40 Oxygen Delivery Room Air 09/14/24 19:40 Temperature 98.3 F 09/14/24 19:40 Pulse Rate 58 L 09/14/24 20:30 Respiratory Rate 15 09/14/24 20:30 Blood Pressure 107/94 H 09/14/24 20:16 Pulse Oximetry 93 09/14/24 20:30 Oxygen Delivery Room Air 09/14/24 19:40 MDM - SOB/Dyspnea MDM Narrative Medical decision making narrative: Patient presented to ED with shortness of breath, URI sx's, R sided CP. Vital signs are stable upon arrival. Patient is slightly tachypneic, somewhat anxious and hyperventilating. Oxygen stable on room air, 97-99%. EKG without concerning ischemic changes. Baseline troponin undetectable. Cbc with blood cell count of 11.9. She has been on prednisone for the past couple of days. No records to compare to. CMP with potassium 3.1. Oral replacement ordered. Evidence of dehydration with slightly elevated anion gap of 13. Fluids initiated. Slight GIRISH. Creatinine today 1.07. Baseline around 0.8. Magnesium within normal range. Viral swabs negative. Chest x-ray with focal right lower lobe opacity, mild interstitial edema. BNP WNL per age. D-dimer did result elevated at 1.22. CTA chest obtained, no evidence of PE. Does show scattered opacities, consistent with atypical infection/pneumonitis. Small pericardial effusion. Patient was ambulated throughout the ED and no hypoxia was noted. Oxygen level stayed around 96-97%. Discussed lab and imaging findings with patient. Patient has already completed a course of doxycycline, prednisone since the onset of her symptoms. She reports sx's have continued to worsen. Discussed admission for IV abx given failed OP treatment. Patient is in agreement. Does not feel comfortable going home. Blood cultures obtained. Rocephin and azithromycin started in the ED. Discussed case with Dr. Flores, hospitalist, accepted patient for admission. Medical Records Attestation: I reviewed the patient's medical records. Lab Data Attestation: I reviewed the patient's lab results. 09/14/24 19:49 09/14/24 19:49 Labs: Lab Results 09/14/24 Range/Units 19:49 WBC 11.9 H (4.5-10.0) K/mm3 RBC 4.59 (4.2-5.4) M/mm3 Hgb 13.8 (12.0-15.0) g/dL Hct 41.7 (37.0-47.0) % MCV 90.8 (80-100) fl MCH 30.1 (26-34) pg MCHC 33.1 (32-36) g/dl RDW 11.9 (11.5-14.5) % Plt Count 557 H (150-375) k/mm3 MPV 9.8 (7.4-10.4) fl Immature Gran % (Auto) 3.9 H (0-0.5) % Neut % (Auto) 55.3 (45.5-73.1) % Lymph % (Auto) 34.9 (18.3-44.2) % [place] % (Auto) 5.0 (2.6-8.5) % Eos % (Auto) 0.5 (0-4.4) % Baso % (Auto) 0.4 (0.2-1.2) % Lymph # (Auto) 4.15 H (0.9-3.2) K/mm3 [place] # (Auto) 0.6 (0.1-0.6) K/mm3 Eos # (Auto) 0.1 (0-0.3) K/mm3 Baso # (Auto) 0.1 (0.0-0.1) K/mm3 Abs Immat Gran (auto) 0.47 H (0.00-0.031) K/mm3 Absolute Neuts (auto) 6.6 (1.3-6.7) K/mm3 Absolute Nucleated RBC 0.000 (0.0-0.012) K/mm3 Nucleated RBC % 0.0 (0.0-0.2) % PT 13.5 (11.1-14.7) Seconds INR 1.0 APTT 26.4 (22.3-36.8) Seconds D-Dimer 1.22 H (<0.48) ug/mL Sodium 142 (137-145) mmol/L Potassium 3.1 L (3.4-5.0) mmol/L Chloride 108 H (98-107) mmol/L Carbon Dioxide 21 L (22-30) mmol/L Anion Gap 13 H (4-12) mmol/L BUN 21 H (7-17) mg/dL Creatinine 1.07 H (0.7-1.0) mg/dL Estim Creat Clear Calc 44 ml/min Estimated GFR 52 L (59 - ) Glucose 97 (65-110) mg/dL Calcium 8.8 (8.4-10.2) mg/dL Magnesium 2.3 (1.6-2.3) mg/dL Total Bilirubin 0.9 (0.2-1.3) mg/dL AST 29 (14-36) U/L ALT 26 (6-35) U/L Alkaline Phosphatase 101 (38-126) U/L Troponin I < 0.012 (0.000-0.034) ng/mL NT-Pro-B Natriuret Pep 176 H (19.9-100) pg/mL Total Protein 8.0 (6.3-8.2) g/dL Albumin 4.3 (3.5-5.1) g/dL Influenza A (RT-PCR) Negative (Negative) Influenza B (RT-PCR) Negative (Negative) RSV (RT-PCR) Negative (Negative) SARS-CoV-2 RNA (RT-PCR) Negative (Negative) Imaging Data Attestation: I personally reviewed and interpreted this imaging study as follows: Radiologist's impression: ITS Impressions Chest X-Ray 09/14/24 20:18 IMPRESSION: Focal subsegmental opacity in the right lung base, likely representing a small focus of consolidation or atelectasis. Recommend radiographic follow-up to ensure resolution. Diffuse pulmonary opacities may represent mild interstitial edema, in the appropriate clinical context. Chest CTA 09/14/24 21:41 IMPRESSION: No CT evidence of acute pulmonary embolus. Scattered pulmonary opacities may represent atypical infection or pneumonitis. Small pericardial effusion. ECG Data EKG #1: Attestation: I personally reviewed and interpreted this ECG as follows: ECG completion date: 09/14/24 ECG completion time: 19:47 EKG Interpretation: normal rate (84), sinus rhythm, non-specific ST changes and other (short [place] interval) Discharge Plan Discharge Clinical Impression: Shortness of breath, Hypokalemia, Dehydration Pneumonia Qualifiers: Pneumonia type: due to unspecified organism Laterality: right Lung location: l ower lobe of lung Qualified Code(s): J18.9 - Pneumonia, unspecified organism Patient Disposition: Still a Patient Condition: Stable Patient Language: Italian Prescriptions: No Action cefdinir 300 mg capsule 300 mg PO Q12H 10 Days Qty: 20 0RF prednisone 20 mg tablet 40 mg PO DAILY 5 Days Qty: 10 0RF hydrocodone-acetaminophen 5-325 mg tablet 1 tablet PO Q6H PRN (Reason: pain) 3 Days Qty: 12 0RF Follow-up/Referrals: Jean Cerrato MD [Primary Care Provider] -
--- OUTSIDE RECORDS SUMMARY | 2024-09-14 20:03 | XMS_ITS | Clinical Summary ---
Author Organization [facility] [employer] Address [address] [place] [address] Care Team Providers Care Training Manager Name Role Phone Unavailable Primary Care Provider Unavailabl e Source Comments [facility],non-owned Affiliates and Associated Physician Practices is amultiple site organization consisting of ambulatory clinics and hospital sitesin [place], [place], [place] and [place]. This disclosure is being madepursuant to the Care Everywhere program and may not contain all information available regarding this patient. Last updated 18.[facility] [employer] Allergies No known active allergies Medications * Be aware that medications may not be up to date on this document. Alwaysverify current medications with the patient. azelastine (Astelin) 0.1 % nasal spray Emerson 1 (one) spray into each nostril 2 times daily 90 mL 4 07/23/2024 Active fluticasone propionate (Flonase) 50 MCG/ACT nasal spray Emerson 2 (two) sprays into each nostril 2 times daily 48 g 4 07/23/2024 Active Encounters Date Type Department Care Team Description 07/23/2024 10:00 AM CDT Office Visit [facility] - ENT [address] [place] [phone] Negro Redd MD Dysfunction of both eustachian tubes (Primary Dx) 07/23/2024 9:30 AM CDT Testing Visit [facility] - ENT [address] [place] [phone] Gustabo Leonard, PhD Sensorineural hearing loss (SNHL) [...] on file Legal Sex Female 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 Patient indicated that a video behavioral technician is not necessary for this appointment. The [...] sensorineural hearing in the left ear. Speech Oil Pipeline Operator Thresholds is in good agreement with pure [...] use of HPD. Gustabo Leonard, Ph.D., GRIFFIN., [facility] Station Cashier, Director Division of Clinical Audiology Department of Otolaryngology- Head & Neck Surgery [facility] Dizziness & Imbalance [facility] Hearing Aid [facility] us Gustabo Leonard PhD AUDIOLOGY SERVICES ORDERABLES Fi nal Result from Last 3 Months Insurance ANTHEM ANTHEM * Guarantor: NE IZAGUIRRE Account Type Relation to Patient Date of Phone Billing Address Personal/Family 1961
--- OUTSIDE RECORDS SUMMARY | 2024-09-14 20:03 | XMS_ITS | Continuity of Care Document ---
Author Organization [facility] Address [address] [place] [address] Phone Care Team Providers Care Outbound Supervisor Name Role Phone Silvio Mendez MD Unavailable [...] visit,est, mod [facility], [address] [address], [place], [place], [id number], [place] tel:[phone] [facility] Right knee (chief complaint) Encounter for other orthopedic aftercare 4 Andrea Anguiano. [address] [facility], [place], [place], [id number] , [place]. tel: [phone] [facility], [address], [id number], [place] tel:[phone] [facility] Having to fill out my own stat (chief complaint) Encounter for other orthopedic aftercare 4 Andrea Anguiano. [address] [facility], [facility] [address], [place], [place], [id number] , [place]. tel: [phone] [facility], [address], [id number], [place] tel:[phone] [facility] right knee (chief complaint) Encounter for other orthopedic aftercare 4 Andrea Anguiano. [address] [facility], [facility] [address], [place], [id number] , [place]. tel: [phone] [facility], [address], [id number], [place] tel:[phone] [facility] Having to check in (chief complaint) Encounter for other orthopedic aftercare 4 Andrea Anguiano. [address] [facility], [address], [id number] , [place]. tel: [phone] [facility], [address], [id number], [place] tel:[phone] [facility] right knee (chief complaint) Encounter for other orthopedic aftercare 4 Andrea Anguiano. [address] [facility], [address] [address], [place], [place], [id number] , [place]. tel: [phone] [facility], [address] [address], [place], [place], [id number], [place] tel:[phone] [facility] No Information 4 Andrea Anguiano. [address] [facility], [address] [address], [place], [place], [id number] , [place]. tel: [phone] Office/outpa tient visit,est, [facility], [address], [id number], [place] tel:[phone] [facility] right knee (chief complaint) Chondromalacia of right knee 4 Andrea Anguiano. [address], [id number] , [place]. tel: [phone] Office/outpa tient visit,est, [facility], [address], [id number], [place] tel:[phone] [facility] Right leg (chief complaint) Contusion of right knee, sequelaChondromal acia of right knee 3 Andrea Anguiano. [address] [facility], [address], [id number] , [place]. tel: [phone] Office/outpa tient visit,est, [facility], [address], [id number], [place] tel:[phone] [facility] Follow up (chief complaint) Contusion of right knee, sequela 3 Andrea Anguiano. [address] [facility], [address] [address], [place], [place], [id number] , [place]. tel: [phone] [facility], [address], [id number], [place] tel:[phone] [facility] right knee (chief complaint) Contusion of right knee, sequelaChondromal acia of right knee 3 Andrea Anguiano. [address] [facility], [address], [place], [place], [id number] , [place]. [phone] Office consultation , moderate MDM [facility], [address] [facility] [address], [place], [id number], tel:[phone] [facility] right knee (chief complaint) Nondisp fx of medial condyle of right femur, init 3 Andrea Anguiano. [address] [facility], [address], [place], [place], [id number] , [place]. tel:[phone] Referring Provider: Silvio Prieto, [facility] [address] [facility], [place], [address] . tel:[phone] Family History Family Member Type Diagnosis Age At Onset Mother Problem (finding) Stroke Mother Problem (finding) Heart Disease Mother Problem (finding) Cancer, unknown Father Problem (finding) Cancer, unknown Immunizations Vaccine Date Status Comments influenza, injectable, quadr ivalent, (3 years or older) administered Source: Other Provid er Payers Payer name Insurance type Covered republican ID Rafita mensah(ashu Quintanilla [facility] [id number] Social History Type Description Quantity Date Captured [...] for right knee follow up. right knee Agni presents t o the office for right knee complaints. Functional Status Date Functional Assessmen t No Information Instructions Date Instruction Additional Infor mation No Information Assessments Type Assessment Date assessment Encounter for other orthopedic a ftercare Patient Care Teams Name Effective Dates (start - stop) Status Members No Information
[2024-09-14 20:14] LABS: Basophils Absolute Auto 0.1 K/mm3 (0.0-0.1); Basophils Percent Auto 0.4 % (0.2-1.2); Eosinophils Absolute Auto 0.1 K/mm3 (0-0.3); Eosinophils Percent Auto 0.5 % (0-4.4); Hematocrit 41.7 % (37.0-47.0); Hemoglobin 13.8 g/dL (12.0-15.0); Immature Granulocyte Absolute 0.47 K/mm3 (0.00-0.031); Immature Granulocyte Percent A 3.9 % (0-0.5); Lymphocytes Absolute Auto 4.15 K/mm3 (0.9-3.2); Lymphocytes Percent Auto 34.9 % (18.3-44.2); Mean Corpuscular HGB Conc 33.1 g/dl (32-36); Mean Corpuscular Hemoglobin 30.1 pg (26-34); Mean Corpuscular Volume 90.8 fl (80-100); Mean Platelet Volume 9.8 fl (7.4-10.4); Monocytes Absolute Auto 0.6 K/mm3 (0.1-0.6); Neutrophils Absolute Auto 6.6 K/mm3 (1.3-6.7); Neutrophils Percent Auto 55.3 % (45.5-73.1); Platelet Count Result 557 k/mm3 (150-375); Red Blood Count 4.59 M/mm3 (4.2-5.4); Red Cell Distribution Width 11.9 % (11.5-14.5); White Blood Count 11.9 K/mm3 (4.5-10.0)
[2024-09-14 20:20] LABS: Alanine Aminotransferase 26 U/L (6-35); Albumin Level 4.3 g/dL (3.5-5.1); Alkaline Phosphatase 101 U/L (38-126); Anion Gap 13 mmol/L (4-12); Aspartate Amino Transferase 29 U/L (14-36); Bilirubin,Total 0.9 mg/dL (0.2-1.3); Blood Urea Nitrogen 21 mg/dL (7-17); Calcium 8.8 mg/dL (8.4-10.2); Carbon Dioxide 21 mmol/L (22-30); Chloride 108 mmol/L (98-107); Estimated CRCL calculation 44 ml/min; Estimated Glomerular Filt Rate 52; Glucose 97 mg/dL (65-110); Potassium 3.1 mmol/L (3.4-5.0); Sodium 142 mmol/L (137-145)
[2024-09-14 20:32] LABS: NT Pro B Type Natriuretic Pept 176 pg/mL (19.9-100); Troponin I < 0.012 ng/mL (0.000-0.034)
[2024-09-14 20:38] LABS: Magnesium 2.3 mg/dL (1.6-2.3)
[2024-09-14] MEDS: POTASSIUM CHLORIDE 20 MEQ ER TABLET 40 MEQ PO (20:45)
[2024-09-14] MEDS: SODIUM CHLORIDE 0.9% IV 1,000 ML 999 ML IV CONT (20:45)
[2024-09-14 20:48] LABS: D Dimer 1.22 ug/mL (<0.48); Partial Thromboplastin Time 26.4 Seconds (22.3-36.8); Prothrombin Time 13.5 Seconds (11.1-14.7)
[2024-09-14 20:56] LABS: Influenza A QL RT-PCR Negative (Negative); Influenza B QL RT-PCR Negative (Negative); RSV RNA, RT-PCR Negative (Negative); SARS-CoV-2 RNA PCR Negative (Negative)
--- NOTE | 2024-09-14 22:18 | P.HP_ITS ---
H&P: HPI History of Present Illness Date/Time: 09/14/24 22:18 Chief Complaint: Shortness of breath Narrative: Patient is a 59-year-old female with a past medical history of hyperlipidemia, migraine, visited ER due to shortness of breath for 5 days. As per ED patient visited her PCP last week and was told she had fluid on her lungs and received nebulizer treatment in the office and was prescribed prednisone, doxycycline and albuterol inhaler. Patient was improved initially with medications but later she continued to have worsening of shortness of breath and cough. Pertinent ED labs: WBC 11.9, hemoglobin 13.8, hematocrit of 41.7, platelet 557, sodium 142, potassium 3.1, chloride 108, bicarb anion gap 13, BUN 21, creatinine 1.07 D-dimer 1.22 CTA chest:No CT evidence of acute pulmonary embolus.Scattered pulmonary opacities may represent atypical infection or pneumonitis. Small pericardial effusion. COVID RSV flu negative Patient is admitted in the setting of a outpatient community-acquired pneumonia treatment failure and AKA possibly due to dehydration. Patient will be started on IV ceftriaxone and azithromycin. Echo will be ordered for morning. Will monitor I's and O's. Patient will be started on gentle fluid resuscitation due to GIRISH and recent contrast exposure. Review of Systems Review of Systems: All systems reviewed & are unremarkable except as noted in HPI. All systems reviewed & are unremarkable except as noted in HPI and below PMFSH Past Medical History Medical History Hyperlipidemia Migraine Headache Allergies Family History Family History Father Family history of lung cancer Mother Family history of coronary artery disease Grandparent Family history of coronary artery disease Social History Social History Social History: Single lives alone. 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 [employer] Gender identity (if verbalized by the patient): Female Spiritual care concerns: No Agree to blood products: Yes Meds Home Medications and Allergies Home Medications Medication Instructions Recorded Confirmed Type No Home Medications 09/15/24 09/15/24 History Allergies Allergy/AdvReac Type Severity Reaction Status Date / Time No Known Allergies Allergy Verified 09/14/24 19:37 Vital Signs Vital Signs - 24 hr 09/14/24 19:40 09/14/24 19:51 09/14/24 19:52 Temperature 98.3 F Pulse Rate 73 72 72 Respiratory Rate 26 H 13 Blood Pressure 154/114 H 154/114 H Pulse Oximetry 97 93 Oxygen Delivery Room Air 09/14/24 19:52 09/14/24 20:00 09/14/24 20:01 Temperature Pulse Rate 73 62 67 Respiratory Rate 23 H 19 22 H Blood Pressure 176/126 H Pulse Oximetry 97 93 Oxygen Delivery 09/14/24 20:15 09/14/24 20:16 09/14/24 20:30 Temperature Pulse Rate 66 67 58 L Respiratory Rate 12 12 15 Blood Pressure 107/94 H Pulse Oximetry 97 93 Oxygen Delivery Exam Narrative: GENERAL: Mildly anxious appearing, well-nourished, non-toxic, in no acute distress. HEAD: Normocephalic, atraumatic. RESPIRATORY: Airway patent, respirations slightly hyperventilating, nonlabored. Rhonchi in bases bilaterally. No significant wheezing. CARDIOVASCULAR: Regular rate and rhythm without murmurs, rubs, or gallops. MUSCULOSKELETAL: Moves all extremities. No gross deformities. No peripheral edema. SKIN: Warm, dry, normal color. NEURO: A&O X3. Speech clear. Cranial nerves II-XII grossly intact. Steady gait. No ataxic movements. PSYCHIATRIC: Appropriate mood and affect. Normal interaction. H&P: Results Labs Labs: Short CBC 09/14/24 Range/Units 19:49 WBC 11.9 H (4.5-10.0) K/mm3 Hgb 13.8 (12.0-15.0) g/dL Hct 41.7 (37.0-47.0) % Plt Count 557 H (150-375) k/mm3 BMP 09/14/24 19:49 Sodium 142 Potassium 3.1 L Chloride 108 H Carbon Dioxide 21 L BUN 21 H Creatinine 1.07 H Glucose 97 Calcium 8.8 Cardiac Enzymes 09/14/24 Range/Units 19:49 Troponin I < 0.012 (0.000-0.034) ng/mL Liver Function 09/14/24 Range/Units 19:49 Total Bilirubin 0.9 (0.2-1.3) mg/dL AST 29 (14-36) U/L ALT 26 (6-35) U/L Alkaline Phosphatase 101 (38-126) U/L Albumin 4.3 (3.5-5.1) g/dL Assessment and Plan Assessment and plan (1) PNA (pneumonia): Code(s): J18.9 - Pneumonia, unspecified organism Status: Acute (2) GIRISH (acute kidney injury): Code(s): N17.9 - Acute kidney failure, unspecified Status: Acute (3) Hyperlipidemia: Qualifiers: Hyperlipidemia type: mixed hyperlipidemia Qualified Code(s): E78.2 - Mixed hyperlipidemia Code(s): E78.5 - Hyperlipidemia, unspecified Status: Acute Assessment and Plan: PNA Vital signs improved and stable RSV COVID flu negative Started on Ceftriaxone and Azothromycin monitor cultures MRSA pending encourage oral intake Prednisone 40 mg x 5 days Guaifenesin GIRISH Cr Baseline 0.8 Mildly elevated creatinine 1.07 Possibly due to dehydration Started gentle fluid resuscitation due to contract exposure from CTA possible prerenal factors/renal Will consider renal ultrasound , CPK,urine electrolytes and urine eosinophils if no improvement Hyperlipidemia Continue home med Medicine reconciliation pending Echo pending DVT prophylaxis: Lovenox 40 mg subQ GI prophylaxis: Protonix 40 mg IV q.d. Hospitalist MIPS Advance Care Plan I have confirmed that the patient's Advanced Care Plan is present, code status is documented, or surrogate decision maker is listed in patient medical record.: Yes Medication Reconciliation I have utilized all available resources to obtain, update and review the patients current medications (includes all prescriptions, OTC, herbals, cannabis, and nutritional supplements).: Yes
[2024-09-14] MEDS: IBUPROFEN 600 MG TABLET PO (22:58)
[2024-09-14] MEDS: ACETAMINOPHEN 500 MG TABLET 1000 MG PO (22:58)
[2024-09-14 23:14] LABS: Troponin I < 0.012 ng/mL (0.000-0.034)
--- NOTE | 2024-09-14 23:15 | PC.NURSE ---
2nd set of blood cultures obtained on the top of left hand using kurin device. Kurin label in bio bag with blood cultures sent to lab at this time. Pt tolerated well.
[2024-09-14] MEDS: SODIUM CHLORIDE 0.9% IV 1,000 ML 70 ML IV CONT (23:18)
[2024-09-14] MEDS: AZITHROMYCIN 500 MG/NS 250 ML 500 MG/250 ML BAG 250 MG IVPB (23:18)
--- NOTE | 2024-09-14 23:43 | ADMGEN ---
This patient, Angi Izaguirre, was admitted to Medical Room 249-01. Patient/family oriented to hospital policies and general routines including ID bracelet, bed and alarms, visiting hours, pain management, procedures, bathroom and other care routines, personal items, smoking policy, room service/diet, and visiting hours. Information on how to activate the Rapid Response Team has been discussed. Patient/Family are encouraged to report perceived risks to care and to ask questions if they do not understand what they are told or what they should do.
[2024-09-14] MEDS: guaiFENesin 12 HR 600 MG TABCR 1200 MG PO (23:47)
--- NOTE | 2024-09-15 | ECHO_ITS ---
Patient Info Name: Angi Izaguirre Age: 59 years : 1965 Gender: Female Ht: 65 in Wt: 149 lbs BSA: 1.77 m2 HR: 68 bpm BP: 114 / 65 mmHg Technical Quality: Good Exam Date: 09/15/2024 9:33 AM Patient Status: I Admit Date: 09/14/2024 Exam Type: CA echo doppler color flow Study Info Complete two-dimensional, color flow and Doppler transthoracic echocardiogram is performed. Staff Referring Physician: Sandra Ghotra Attending Provider: Charles Flores Summary 1. Complete two-dimensional, color flow and Doppler transthoracic echocardiogram is performed. 2. Left ventricular chamber dimension is normal. 3. Left ventricular systolic function is normal, estimated at 60-65. 4. The left ventricular diastolic function is grade III diastolic dysfunction. 5. E/e' 9 is minimally elevated. 6. There is trace mitral valve regurgitation. 7. There is trace pulmonic regurgitation. 8. There is trivial pericardial effusion. Left Ventricle E/e' 9 is minimally elevated. Left ventricular chamber dimension is normal. Left ventricular systolic function is normal, estimated at 60-65. The left ventricular diastolic function is grade III diastolic dysfunction. Right Ventricle Right ventricular chamber dimension is normal. Right ventricular systolic function is normal and with normal TAPSE 2.1 cm. Left Atria Left atrial chamber dimension is normal. Right Atria Right atrial chamber dimension is normal. Aortic Valve The aortic valve is trileaflet. There is no aortic valve stenosis. There is no aortic valve regurgitation. Pulmonic Valve There is trace pulmonic regurgitation. Mitral Valve There is no mitral valve stenosis. There is trace mitral valve regurgitation. Tricuspid Valve There is no tricuspid valve regurgitation. Pericardium/Pleural There is trivial pericardial effusion. Inferior Vena Cava Normal inferior vena cava with >50% collapse upon inspiration consistent with normal right atrial pressure, 5 mmHg. Aorta The aortic root size at the sinus of Valsalva is normal. Left Ventricular Outflow Tract Name Value Normal LVOT 2D LVOT Diameter 1.7 cm LVOT Doppler LVOT Peak Velocity 112 cm/s LVOT Peak Gradient 5 mmHg LVOT Mean Gradient 2 mmHg LVOT VTI 26 cm LVOT VTI/AV VTI Ratio 0.9 LVOT Stroke Volume 59 ml LVOT CO 9.3 l/min LVOT CI 5.3 l/min/m2 Pulmonic Valve Name Value Normal PV Doppler PV Peak Velocity 87 cm/s PV Peak Gradient 3 mmHg Mitral Valve Name Value Normal MV Diastolic Function MV E Peak Velocity 95 cm/s MV A Peak Velocity 46 cm/s MV E/A 2.1 MV Decel Time (PW) 139 ms MV Annular TDI MV E/e' (Septal) 10.3 MV E/e' (Lateral) 8.8 MV E/e' (Average) 9.5 Tricuspid Valve Name Value Normal Estimated PAP/RSVP RA Pressure 5 mmHg <=5 TV Annular TDI TV Lateral Madeleine s' Velocity 13.9 cm/s >=9.5 Aorta Name Value Normal Ascending Aorta Ao Root Diameter (MM) 2.5 cm Ao Root Diam Index (MM) 1.4 cm/m2 Aortic Valve Name Value Normal AV Doppler AV Peak Velocity 133 cm/s AV Peak Gradient 7 mmHg AV Mean Gradient 4 mmHg AV VTI 30 cm AV Area (Cont Eq VTI) 2.0 cm2 >=3.0 AV Area (Cont Eq Dion) 1.9 cm2 AV DI (Dion) 0.84 AV Regurgitation 2D LVOT Area 2.2 cm2 Ventricles Name Value Normal LV Dimensions 2D/MM IVS Diastolic Thickness (2D) 1.1 cm 0.6-1.0 LVID Diastole (2D) 4.1 cm 3.8-5.2 LVIW Diastolic Thickness (2D) 1.0 cm 0.6-0.9 LVID Systole (2D) 2.6 cm 2.2-3.5 LVOT Diameter 1.7 cm LV Mass (2D Cubed) 141.11 g 67.00-162.00 LV Mass Index (2D Cubed) 80 g/m2 43-95 Relative Wall Thickness (2D) 0.50 <=0.42 LV Fractional Shortening/Ejection Fraction 2D/MM LV Fractional Shortening (2D) 37 % 27-45 LV EF (2D Teichholz) 67 % LV Diastolic Volume (4C MOD) 81 ml LV EF (4C MOD) 74 % LV Diastolic Volume (2C MOD) 72 ml LV EF (2C MOD) 74 % LV Diastolic Volume (BP MOD) 77 ml 46-106 LV Diastolic Volume Index (BP MOD) 44 ml/m2 29-61 LV Systolic Volume (BP MOD) 20 ml 14-42 LV Systolic Volume Index (BP MOD) 11 ml/m2 8-24 LV EF (BP MOD) 74 % 54-74 LV Diastolic Length (4C) 7.9 cm LV Systolic Length (4C) 6.3 cm LV Stroke Volume (4C MOD) 60 ml RV Dimensions 2D/MM RVID Diastole (2D) 3.5 cm 2.1-3.5 Atria Name Value Normal LA Dimensions LA Dimension (MM) 3.2 cm 2.7-3.8 LA Volume (4C A-L) 47 ml LA Volume (BP A-L) 47 ml RA Dimensions RA Systolic Major [place] Length (4C) 4.4 cm 2.2-2.8 RA Area (4C) 13.4 cm2 <=18.0 Report Signatures
[2024-09-15 00:01] LABS: MRSA (PCR) NOT DETECTED (NOT DETECTE)
[2024-09-15 03:31] VITALS: BP 114/65; PULSE 51; RESP 20; TEMP 36.6; O2SAT 96
[2024-09-15] MEDS: predniSONE 20 MG TABLET 40 MG PO (09:25)
[2024-09-15] MEDS: guaiFENesin 12 HR 600 MG TABCR 1200 MG PO ×2 (09:25→20:29)
--- NOTE | 2024-09-15 09:34 | P.PNIM_ITS ---
Progress Note: A&P Assessment and Plan (1) PNA (pneumonia): Code(s): J18.9 - Pneumonia, unspecified organism Status: Acute Assessment and Plan: patient had been treated outpatient with doxycycline and a nebulizer treatment for community-acquired pneumonia but her symptoms have worsened she was admitted for IV antibiotics, RSV COVID flu negative, CTA no PE scattered pulmonary opacities may represent atypical infection or pneumonitis. MRSA negative * Continue Ceftriaxone and Azothromycin * Blood cultures NGTD x 24hr * Prednisone 40 mg x 5 days * Guaifenesin * incentive spirometer * Duonebs (2) Hyperlipidemia: Qualifiers: Hyperlipidemia type: mixed hyperlipidemia Qualified Code(s): E78.2 - Mixed hyperlipidemia Code(s): E78.5 - Hyperlipidemia, unspecified Status: Acute Assessment and Plan: * Does not currently take any medications * Lipid panel * Started Atorvastatin 40mg daily (3) Pericardial effusion: Code(s): I31.39 - Other pericardial effusion (noninflammatory) Status: Acute Assessment and Plan: CTA noted a small pericardial effusion, EKG SR with short WA interval 84 * echo pending for further evaluation (4) GIRISH (acute kidney injury): Code(s): N17.9 - Acute kidney failure, unspecified Status: Resolved Assessment and Plan: Cr Baseline 0.8, Mildly elevated creatinine 1.07 Possibly due to dehydration * gentle fluid resuscitation due to contract exposure from CTA * encourage oral hydration * possible prerenal factors/renal * consider renal ultrasound , CPK,urine electrolytes and urine eosinophils if no improvement Plan Code status: Full code per patient DVT prophylaxis: Lovenox Stress ulcer prophylaxis: Protonix 40 daily PT/OT notes: Ambulatory Disposition: Patient continues admission for treatment community-acquired pneumonia with failure to outpatient therapy. will continue with current treatment plan once patient is medically stable plan is to discharge back to home. Time Spent With Patient Time with patient: 15 - 25 minutes Subjective Date/time seen: 09/15/24 09:34 Interval history: Patient is a 59-year-old female admitted for further treatment of community- acquired pneumonia which failed outpatient treatment 09/15/24: Patient states she feels better today and less congested still with SOB worse with activity, denied CP, N/V, fever or chills Review of Systems Review of Systems: All systems reviewed & are unremarkable except as noted in HPI. All systems reviewed & are unremarkable except as noted in HPI and below Exam Narrative: GENERAL: NAD HEAD: Normocephalic, atraumatic. RESPIRATORY: Airway patent, respirations slightly hyperventilating, nonlabored. Rhonchi in bases bilaterally. No significant wheezing. CARDIOVASCULAR: RRR MUSCULOSKELETAL: Moves all extremities. SKIN: Warm, dry, normal color. NEURO: A&O X3. Speech clear. PSYCHIATRIC: Appropriate mood and affect. Mildly anxious Objective Data Vital Signs Vital Signs: Vital Signs - 24 hr 09/14/24 19:40 09/14/24 19:40 09/14/24 19:51 Temperature 98.3 F Pulse Rate 73 72 Respiratory Rate 26 H 13 Blood Pressure 154/114 H 154/114 H Pulse Oximetry 97 93 Oxygen Delivery Room Air Room Air 09/14/24 19:52 09/14/24 19:52 09/14/24 20:00 Temperature Pulse Rate 72 73 62 Respiratory Rate 23 H 19 Blood Pressure Pulse Oximetry 97 Oxygen Delivery 09/14/24 20:01 09/14/24 20:15 09/14/24 20:16 Temperature Pulse Rate 67 66 67 Respiratory Rate 22 H 12 12 Blood Pressure 176/126 H 107/94 H Pulse Oximetry 93 97 Oxygen Delivery 09/14/24 20:30 09/14/24 20:45 09/14/24 20:48 Temperature Pulse Rate 58 L 63 67 Respiratory Rate 15 24 H 20 Blood Pressure 112/71 Pulse Oximetry 93 96 100 Oxygen Delivery 09/14/24 21:01 09/14/24 21:07 09/14/24 21:39 Temperature Pulse Rate 55 L 63 62 Respiratory Rate 19 13 20 Blood Pressure 106/57 L Pulse Oximetry 100 100 95 Oxygen Delivery 09/14/24 21:45 09/14/24 21:46 09/14/24 22:00 Temperature Pulse Rate 64 63 71 Respiratory Rate 19 19 26 H Blood Pressure 129/73 Pulse Oximetry 94 95 97 Oxygen Delivery 09/14/24 22:02 09/14/24 22:15 09/14/24 22:37 Temperature Pulse Rate 60 62 63 Respiratory Rate 18 19 15 Blood Pressure 123/73 Pulse Oximetry 99 98 Oxygen Delivery 09/14/24 22:45 09/14/24 22:47 09/14/24 23:00 Temperature Pulse Rate 65 58 L 75 Respiratory Rate 21 H 16 26 H Blood Pressure 124/81 Pulse Oximetry Oxygen Delivery 09/14/24 23:32 09/14/24 23:51 09/14/24 23:52 Temperature 97.8 F Pulse Rate 65 65 Respiratory Rate 24 H 20 Blood Pressure 104/61 115/68 Pulse Oximetry 97 93 Oxygen Delivery Room Air 09/15/24 03:31 Temperature 97.8 F Pulse Rate 51 L Respiratory Rate 20 Blood Pressure 114/65 Pulse Oximetry 96 Oxygen Delivery Intake/Output Intake/Output: Intake & Output 09/12/24 09/13/24 09/14/24 09/15/24 23:59 23:59 23:59 23:59 Intake Total 1050 190 Balance 1050 190 Meds/Results Medications: Active Medications Generic Name Dose Route Start Last Admin Trade Name Freq PRN Reason Stop Dose Admin Acetaminophen 650 mg 09/14/24 22:18 Acetaminophen 325 Mg Tablet PO Q4H PRN Mild Pain (1-3) or Fever Dextrose 12.5 gm 09/14/24 22:18 Dextrose 50% 25 Gm/50 Ml Syringe IV PUSH PRN PRN Hypoglycemia Protocol Enoxaparin Sodium 40 mg 09/15/24 09:00 09/15/24 09:27 Enoxaparin 40 Mg/0.4 Ml Syringe SUB-Q Not Given DAILY FREDI Glucagon 1 mg 09/14/24 22:20 Glucagon For Inj 1 Mg Vial IM PRN PRN Hypoglycemia Protocol Glucose 15 gm 09/14/24 22:18 Glucose Oral Gel 15 Gm Of Glucse In 37.5 Gm Tube PO PRN PRN Hypoglycemia Protocol Guaifenesin 1,200 mg 09/14/24 23:00 09/15/24 09:25 Guaifenesin 12 Hr 600 Mg Tabcr PO 1,200 mg Q12HR FREDI Administration Ceftriaxone Sodium 1 gm in 50 mls @ 100 mls/hr 09/15/24 22:00 Rocephin 1 Gm/Ns 50 Ml IVPB Q24H FREDI Azithromycin 500 mg in 250 mls @ 250 mls/hr 09/15/24 22:00 Zithromax IVPB Q24H FREDI Dextrose 1,000 mls @ 100 mls/hr 09/14/24 22:18 Dextrose 5% 1,000 Ml IVPB PRN PRN Hypoglycemia Protocol Sodium Chloride 1,000 mls @ 70 mls/hr 09/14/24 22:55 09/14/24 23:18 Normal Saline Iv IV CONT 70 mls/hr .[id number] FREDI Administration Pantoprazole Sodium 40 mg 09/15/24 09:00 09/15/24 09:25 Pantoprazole Sodium Iv 40 Mg Vial IV PUSH Not Given DAILY FREDI Perflutren Lipid Microsphere 0 ml 09/14/24 22:54 Perflutren Lipid Microspheres 1.5 Ml Vial Diluted To 10 Ml Total Volume IV PUSH 09/17/24 22:54 ONCE PRN adequate visualization Protocol Prednisone 40 mg 09/15/24 08:00 09/15/24 09:25 Prednisone 20 Mg Tablet PO 09/20/24 07:59 40 mg DAILY@0800 FREDI Administration Radiology Results: ITS Impressions Chest X-Ray 09/14/24 20:18 IMPRESSION: Focal subsegmental opacity in the right lung base, likely representing a small focus of consolidation or atelectasis. Recommend radiographic follow-up to ensure resolution. Diffuse pulmonary opacities may represent mild interstitial edema, in the appropriate clinical context. Chest CTA 09/14/24 21:41 IMPRESSION: No CT evidence of acute pulmonary embolus. Scattered pulmonary opacities may represent atypical infection or pneumonitis. Small pericardial effusion. Labs Labs: Laboratory Results - last 24 hr 09/14/24 09/14/24 19:49 22:41 WBC 11.9 H RBC 4.59 Hgb 13.8 Hct 41.7 MCV 90.8 MCH 30.1 MCHC 33.1 RDW 11.9 Plt Count 557 H MPV 9.8 Immature Gran % (Auto) 3.9 H Neut % (Auto) 55.3 Lymph % (Auto) 34.9 Leake % (Auto) 5.0 Eos % (Auto) 0.5 Baso % (Auto) 0.4 Lymph # (Auto) 4.15 H Leake # (Auto) 0.6 Eos # (Auto) 0.1 Baso # (Auto) 0.1 Abs Immat Gran (auto) 0.47 H Absolute Neuts (auto) 6.6 Absolute Nucleated RBC 0.000 Nucleated RBC % 0.0 PT 13.5 INR 1.0 APTT 26.4 D-Dimer 1.22 H Sodium 142 Potassium 3.1 L Chloride 108 H Carbon Dioxide 21 L Anion Gap 13 H BUN 21 H Creatinine 1.07 H Estim Creat Clear Calc 44 Estimated GFR 52 L Glucose 97 Calcium 8.8 Magnesium 2.3 Total Bilirubin 0.9 AST 29 ALT 26 Alkaline Phosphatase 101 Troponin I < 0.012 < 0.012 NT-Pro-B Natriuret Pep 176 H Total Protein 8.0 Albumin 4.3 Nasal MRSA (PCR) Not detected Influenza A (RT-PCR) Negative Influenza B (RT-PCR) Negative RSV (RT-PCR) Negative SARS-CoV-2 RNA (RT-PCR) Negative Quality VTE Prophylaxis VTE prophylaxis: pharmacologic ordered -Patient's previous records reviewed on admission -ER notes reviewed in detail on admission -discussed all findings and current treatment plan with patient/Family/POA -Consultations reviewed for recommendations -Patient's disposition for safe discharge discussed with bilingual patient support caseworker Dictation performed by [employer] direct speech recognition software, therefore certified marine mechanic variants and typographical errors may occur. Hospitalist [facility] Advance Care Plan I have confirmed that the patient's Advanced Care Plan is present, code status is documented, or surrogate decision maker is listed in patient medical record.: Yes Medication Reconciliation I have utilized all available resources to obtain, update and review the patients current medications (includes all prescriptions, OTC, herbals, cannabis, and nutritional supplements).: Yes The patient is not eligible for med reconciliation; the patient is in a emergent medical situation where delaying treatment would jeopardize the patients health.: No
[2024-09-15 10:01] LABS: Hematocrit 39.6 % (37.0-47.0); Hemoglobin 12.8 g/dL (12.0-15.0); Mean Corpuscular HGB Conc 32.3 g/dl (32-36); Mean Corpuscular Hemoglobin 30.5 pg (26-34); Mean Corpuscular Volume 94.5 fl (80-100); Mean Platelet Volume 9.4 fl (7.4-10.4); Platelet Count Result 447 k/mm3 (150-375); Red Blood Count 4.19 M/mm3 (4.2-5.4); Red Cell Distribution Width 12.2 % (11.5-14.5); White Blood Count 9.1 K/mm3 (4.5-10.0)
[2024-09-15 10:19] LABS: Alanine Aminotransferase 23 U/L (6-35); Albumin Level 3.6 g/dL (3.5-5.1); Alkaline Phosphatase 77 U/L (38-126); Anion Gap 8 mmol/L (4-12); Aspartate Amino Transferase 27 U/L (14-36); Bilirubin,Total 0.9 mg/dL (0.2-1.3); Blood Urea Nitrogen 16 mg/dL (7-17); Calcium 8.3 mg/dL (8.4-10.2); Carbon Dioxide 25 mmol/L (22-30); Chloride 109 mmol/L (98-107); Cholesterol 239 mg/dL (0-200); Estimated CRCL calculation 49 ml/min; Estimated Glomerular Filt Rate 59; Glucose 89 mg/dL (65-110); HDL Direct 34 mg/dL; Potassium 3.5 mmol/L (3.4-5.0); Sodium 142 mmol/L (137-145); Triglycerides 287 mg/dL (<150)
[2024-09-15 10:30] LABS: LDL Cholesterol Direct 128 mg/dL
[2024-09-15] MEDS: SODIUM CHLORIDE 0.9% IV 1,000 ML 70 ML IV CONT (13:22)
[2024-09-15 14:00] VITALS: BP 118/68; PULSE 58; RESP 19; TEMP 36.5; O2SAT 97
[2024-09-15] MEDS: IPRATROPIUM 0.5 MG/ALBUTEROL SULFATE 2.5 MG AMPUL.NEB 3 ML INHALATION ×3 (15:05→20:37)
[2024-09-15 20:00] VITALS: PULSE 75; RESP 20; O2SAT 99
[2024-09-15] MEDS: LORATADINE 10 MG TABLET PO (20:29)
[2024-09-15 20:38] VITALS: PULSE 70; RESP 20
[2024-09-15 20:51] VITALS: BP 139/76; PULSE 68; RESP 20; TEMP 36.1; O2SAT 99
[2024-09-15 20:56] VITALS: PULSE 75; RESP 20
[2024-09-15] MEDS: AZITHROMYCIN 500 MG/NS 250 ML 500 MG/250 ML BAG 250 MG IVPB (21:00)
[2024-09-16] MEDS: IPRATROPIUM 0.5 MG/ALBUTEROL SULFATE 2.5 MG AMPUL.NEB 3 ML INHALATION ×2 (02:01→08:46)
[2024-09-16 02:02] VITALS: PULSE 77; RESP 20
[2024-09-16 02:11] VITALS: PULSE 79; RESP 20
[2024-09-16 04:56] LABS: Hematocrit 35.1 % (37.0-47.0); Mean Corpuscular HGB Conc 34.2 g/dl (32-36); Mean Corpuscular Hemoglobin 31.3 pg (26-34); Mean Corpuscular Volume 91.4 fl (80-100); Mean Platelet Volume 9.5 fl (7.4-10.4); Platelet Count Result 460 k/mm3 (150-375); Red Blood Count 3.84 M/mm3 (4.2-5.4); Red Cell Distribution Width 11.9 % (11.5-14.5); White Blood Count 10.3 K/mm3 (4.5-10.0)
[2024-09-16 05:02] VITALS: BP 134/79; PULSE 72; RESP 20; TEMP 36.6; O2SAT 99
[2024-09-16 05:15] LABS: Alanine Aminotransferase 27 U/L (6-35); Albumin Level 3.7 g/dL (3.5-5.1); Alkaline Phosphatase 79 U/L (38-126); Anion Gap 10 mmol/L (4-12); Aspartate Amino Transferase 30 U/L (14-36); Bilirubin,Total 0.6 mg/dL (0.2-1.3); Blood Urea Nitrogen 10 mg/dL (7-17); Calcium 8.6 mg/dL (8.4-10.2); Carbon Dioxide 24 mmol/L (22-30); Chloride 109 mmol/L (98-107); Estimated CRCL calculation 59 ml/min; Estimated Glomerular Filt Rate > 60; Glucose 129 mg/dL (65-110); Potassium 3.4 mmol/L (3.4-5.0); Sodium 143 mmol/L (137-145)
[2024-09-16] MEDS: guaiFENesin 12 HR 600 MG TABCR 1200 MG PO (08:10)
[2024-09-16] MEDS: predniSONE 20 MG TABLET 40 MG PO (08:10)
[2024-09-16] MEDS: ATORVASTATIN 40 MG TABLET PO (08:11)
[2024-09-16 08:49] VITALS: PULSE 69; RESP 18
[2024-09-16 08:58] VITALS: PULSE 74; RESP 18
--- NOTE | 2024-09-16 11:29 | P.DS_ITS ---
DS: Admitting Diagnosis Discharge Date 09/16/24 Admitting Diagnosis Pneumonia DS: Discharge Diagnosis Discharge Diagnosis (1) PNA (pneumonia): Code(s): J18.9 - Pneumonia, unspecified organism Status: Acute Assessment and Plan: patient had been treated outpatient with doxycycline and a nebulizer treatment for community-acquired pneumonia but her symptoms have worsened she was admitted for IV antibiotics, RSV COVID flu negative, CTA no PE scattered pulmonary opacities may represent atypical infection or pneumonitis. MRSA negative * Continue Ceftriaxone and Azothromycin, will switch to omnicef and doxy * Blood cultures NGTD * received Prednisone 40 mg * (2) Hyperlipidemia: Qualifiers: Hyperlipidemia type: mixed hyperlipidemia Qualified Code(s): E78.2 - Mixed hyperlipidemia Code(s): E78.5 - Hyperlipidemia, unspecified Status: Acute Assessment and Plan: * Does not currently take any medications * Lipid panel * Atorvastatin 40mg daily (3) Pericardial effusion: Code(s): I31.39 - Other pericardial effusion (noninflammatory) Status: Acute Assessment and Plan: CTA noted a small pericardial effusion, EKG SR with short AL interval 84 (4) GIRISH (acute kidney injury): Code(s): N17.9 - Acute kidney failure, unspecified Status: Resolved Assessment and Plan: improved Cr Baseline 0.8, Mildly elevated creatinine 1.07 Possibly due to dehydration * gentle fluid resuscitation due to contract exposure from CTA * encourage oral hydration * possible prerenal factors/renal * Plan Code status: Full code per patient DVT prophylaxis: Lovenox Stress ulcer prophylaxis: Protonix 40 daily PT/OT notes: Ambulatory DS: Summary Hospital Course Hospital Course: per HPi: Patient is a 59-year-old female with a past medical history of hyperlipidemia, migraine, visited ER due to shortness of breath for 5 days. As per ED patient visited her PCP last week and was told she had fluid on her lungs and received nebulizer treatment in the office and was prescribed prednisone, doxycycline and albuterol inhaler. Patient was improved initially with medications but later she continued to have worsening of shortness of breath and cough. Pertinent ED labs: WBC 11.9, hemoglobin 13.8, hematocrit of 41.7, platelet 557, sodium 142, potassium 3.1, chloride 108, bicarb anion gap 13, BUN 21, creatinine 1.07 D-dimer 1.22 CTA chest:No CT evidence of acute pulmonary embolus.Scattered pulmonary opacities may represent atypical infection or pneumonitis. Small pericardial effusion. COVID RSV flu negative 09/16/24 Patient was seen and examined at bedside. She is feeling better. Breathing improving. Denies any chest pain, abdominal pain, nausea vomiting. On exam lungs clear. Will discharge patient on Omnicef and doxycycline Status at Discharge Functional status at discharge: independent ambulation Time Spent with Patient Time attestation: Total time spent providing and/or coordinating discharge services: Time spent: Greater than 30 minutes Exam Narrative: GENERAL: NAD HEAD: Normocephalic, atraumatic. RESPIRATORY: Airway patent, r clear lung, nonlabored. No significant wheezing. CARDIOVASCULAR: RRR MUSCULOSKELETAL: Moves all extremities. SKIN: Warm, dry, normal color. NEURO: A&O X3. Speech clear. PSYCHIATRIC: Appropriate mood and affect. Mildly anxious DS: Data Data Completed and Pending Labs on day of discharge: Labs from last 24 hours 09/16/24 04:30 WBC 10.3 H RBC 3.84 L Hgb 12.0 Hct 35.1 L MCV 91.4 MCH 31.3 MCHC 34.2 RDW 11.9 Plt Count 460 H MPV 9.5 Sodium 143 Potassium 3.4 Chloride 109 H Carbon Dioxide 24 Anion Gap 10 BUN 10 D Creatinine 0.79 Estim Creat Clear Calc 59 Estimated GFR > 60 Glucose 129 H Calcium 8.6 Total Bilirubin 0.6 AST 30 ALT 27 Alkaline Phosphatase 79 Total Protein 7.0 Albumin 3.7 Preliminary micro results at discharge 09/14/24 23:15 Blood Culture - Preliminary Blood 09/14/24 22:40 Blood Culture - Preliminary Blood Discharge Plan Discharge Attending physician on discharge: Dariana Dean Consulting providers: Ana Rosa Whiteside Discharging Clinician: Dariana eDan Anticipated Discharge Date/Time: 09/16/24 11:44 Patient Disposition: Home Activity: as tolerated Diet: as tolerated and low fat Discharge Instructions: Follow with PCP in 1 week Continue antibiotics for 1 week Patient Instructions: Antibiotic Form, Pain Management (DC) Patient Language: Portuguese Stand Alone Forms: General Discharge Information Follow-up/Referrals: Jean Cerrato MD [Primary Care Provider] - 1 Week Discharge Medications: New acetaminophen 325 mg Tablet 650 mg PO Q4H PRN (Reason: Mild Pain (1-3) Or Fever) Qty: 30 0RF atorvastatin 40 mg Tablet 40 mg PO DAILY Qty: 30 0RF cefdinir 300 mg capsule 300 mg PO Q12H Qty: 14 0RF doxycycline hyclate 100 mg capsule 100 mg PO BID Qty: 14 0RF No Action No Home Medications Date of admission: 09/14/24 22:18 Primary Care Provider: Jean Cerrato Admitting Provider: Charles Flores Attending physician on admission: Dariana Dean Condition: Stable Quality VTE Prophylaxis VTE prophylaxis: pharmacologic ordered
== END 2024-09-16 12:25 | disposition home or self-care (01) ==
LOC: ANHED 22:32 → ANH2MED 22:39
PROVIDERS: Nurse Practitioner Family; Admitting Provider General Practice; Emergency Provider Physician Assistant; PCP Emergency Medicine; Visit Provider Internal Medicine
DX: J18.9 Pneumonia, unspecified organism (principal); I31.39 Other pericardial effusion (noninflammatory); N17.9 Acute kidney failure, unspecified; E78.2 Mixed hyperlipidemia; E86.0 Dehydration; E87.6 Hypokalemia; G43.909 Migraine, unspecified, not intractable, without status migrainosus; Z20.822 Contact with and (suspected) exposure to COVID-19
CPT/HCPCS: 36415; 71046; 71275; 80053; 80061; 83735; 83880; 84484; 85025; 85027; 85380; 85610; 85730; 87040; 87637; 87641; 93005; 93306; 94640; 96361; 96365; 96367; 96372; 96374; 96375; 99285; A9270; G0378; G0379; J0456; J0696; J1650; J7030; J7512; Q9967